=== PATIENT | male | born 1975 | race Two or more races ===

== ENCOUNTER 2018-06-08 13:52 | Emergency (ER) | payer OTHER ==
[~2018-06-08] VITALS: Ht 182.9 cm; Wt 90.7 kg
[2018-06-08] MEDS ORDERED: TRAMADOL HCL 50 MG TABLET ONE (14:57)
[2018-06-08] MEDS ORDERED: ONDANSETRON 4 MG TAB.RAPDIS ONE (14:57)
[2018-06-08] MEDS: ONDANSETRON 4 MG TAB.RAPDIS SL ONE (15:01)
[2018-06-08] MEDS: TRAMADOL HCL 50 MG TABLET PO ONE (15:02)
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
[2018-06-08] MEDS: KETOROLAC TROMETHAMINE INJ 60 MG/2 ML VIAL IM ONE (16:23)
[2018-06-08 16:24] VITALS: BP 129/80
== END 2018-06-08 16:26 | disposition home or self-care (01) ==
LOC: ER 13:55
DX: S16.1XXA Strain of muscle, fascia and tendon at neck level, initial encounter (principal); S39.012A Strain of muscle, fascia and tendon of lower back, initial encounter; R11.2 Nausea with vomiting, unspecified; R42 Dizziness and giddiness; V49.49XA Driver injured in collision with other motor vehicles in traffic accident, initial encounter; Y93.89 Activity, other specified; Y92.410 Unspecified street and highway as the place of occurrence of the external cause; Y99.8 Other external cause status
CPT/HCPCS: 70450; 72110; 99284; A4606 ×2; Q0162; Z7610 ×2

== ENCOUNTER 2018-12-27 05:04 | Inpatient (IN) | payer OTHER ==
[~2018-12-27] VITALS: Ht 180.3 cm; Wt 93.4 kg
--- NOTE | 2018-12-27 05:10 | NUR ---
TO BED 10 BIB EMS C/O POSSIBLE SYNCOPE, PT WAS FOUND ON THE BATHRROM FLOOR. NOTED BLACK TARRY STOOL OB THE SHEET. PT AAOX4 NO ACUTE DISTRESS NOTED, RESP EVEN AND UNLABORED. PT PALE, COOL AND DIAPHORETIC. PLACE PT ON CARDIAC MONITORING, CONTINUOUS POX, O2@2L/NC. ER MD AT BEDSIDE TO EVAL PT WITH ORDERS RECEIVED. WILL CARRY OUT ORDERS.
--- NOTE | 2018-12-27 05:14 | NUR ---
STARTED SL 18G TO [facility], BLOOD DRAWN AND SENT TO LAB.
--- NOTE | 2018-12-27 05:15 | NUR ---
STARTED SL 16G TO [facility], BLOOD DRAWN AND SENT TO LAB.
[2018-12-27] MEDS ORDERED: PANTOPRAZOLE 40 MG VIAL ONE (05:22)
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
[2018-12-27] MEDS ORDERED: IV NS 0.9% 1,000 ML BAG IV ONE (05:30)
[2018-12-27] MEDS ORDERED: PANTOPRAZOLE 80 MG in IV NS 0.9% 100 ML IV ONE (05:30)
[2018-12-27] MEDS ORDERED: ONDANSETRON HCL/PF 4 MG/2 ML VIAL ONE (05:37)
--- NOTE | 2018-12-27 05:39 | NUR ---
NOW PT REPORT BLACK TARRY STOOL X2 DAYS.
[2018-12-27 05:41] LABS: BASOPHILS # (AUTO) 0.1 /CMM (0.0-0.2); BASOPHILS % (AUTO) 0.8 % (0.0-2.0); EOSINOPHILS % (AUTO) 3.4 % (0.0-6.0); HEMATOCRIT 29 % (39-51); HEMOGLOBIN 9.6 g/dL (13.5-17.5); LYMPHOCYTES # (AUTO) 3.6 /CMM (0.8-4.8); LYMPHOCYTES % (AUTO) 41.8 % (20.0-44.0); MEAN CORPUSCULAR HGB CONC 34 g/dl (31.0-36.0); MEAN CORPUSCULAR VOLUME 89 fL (80-96); MONOCYTES # (AUTO) 0.5 /CMM (0.1-1.30); MONOCYTES % (AUTO) 5.8 % (2.0-12.0); NEUTROPHILS # (AUTO) 4.2 /CMM (1.8-8.9); NEUTROPHILS % (AUTO) 48.2 % (43.0-81.0); PLATELET COUNT (AUTO) 299 /CMM (150-450); RED BLOOD CELL COUNT(AUTO) 3.21 MIL/uL (4.5-6.0); WHITE BLOOD COUNT (AUTO) 8.6 K/uL (4.3-11.0)
[2018-12-27 05:54] LABS: CALCIUM, SERUM 8.5 mg/dL (8.5-10.1); CARBON DIOXIDE 27 mmol/L (21-32); CHLORIDE 105 mmol/L (98-107); CREATININE 1.2 mg/dL (0.6-1.3); GLUCOSE 171 mg/dL (74-106); POTASSIUM 4.2 mmol/L (3.5-5.1); SODIUM SERUM 144 mmol/L (136-145); UREA NITROGEN, BLOOD 45 mg/dL (7-18)
[2018-12-27 06:00] LABS: ALANINE AMINOTRANSFERASE 22 U/L (12-78); ALBUMIN 2.8 g/dL (3.4-5.0); ALKALINE PHOSPHATASE 32 U/L (46-116); ASPARTATE AMINOTRANSFERASE 11 U/L (15-37); BILIRUBIN,DIRECT 0.1 mg/dL (0.0-0.2); BILIRUBIN,TOTAL 0.4 mg/dL (0.2-1.0); LIPASE 150 U/L (73-393); TOTAL PROTEIN, SERUM 5.4 g/dL (6.4-8.2)
[2018-12-27] MEDS ORDERED: ONDANSETRON HCL/PF 4 MG/2 ML VIAL IV ONE (06:00)
--- NOTE | 2018-12-27 06:10 | NUR ---
[facility] CALLED. GREENHOUSE LABORER PAGED
[2018-12-27 06:18] LABS: BAND % (MANUAL) 1 % (0.0-5.0); EOSINOPHILS % (MANUAL) 1 % (0-4); LYMPHOCYTES % (MANUAL) 33 % (16-48); MONOCYTES % (MANUAL) 6 % (0-11.0); NEUTROPHILS % (MANUAL) 59 (42-76)
[2018-12-27] MEDS ORDERED: METOCLOPRAMIDE HCL 10 MG/2 ML VIAL IV ONE (06:30)
[2018-12-27] MEDS ORDERED: METOCLOPRAMIDE HCL 10 MG/2 ML VIAL ONE (06:32)
--- NOTE | 2018-12-27 06:49 | NUR ---
CALLED [employer] CH[facility] C[employer] ATTENDANT DR LOPES. ON THE PHONE WITH DR VERDUZCO
--- NOTE | 2018-12-27 07:03 | NUR ---
CALLED Sifteo HEARING AID MECHANIC WAS PAGED.
--- NOTE | 2018-12-27 07:22 | NUR ---
RECEIVED AUTH FROM [facility]AD[facility]SH[facility] RECRU[facility] TO ADMIT PT TO PANEL AUTH # [id number] CLINICALS FAXED TO [facility] AT [phone]
--- NOTE | 2018-12-27 07:28 | NUR ---
GAVE REPORT TO BHARAT BURLESON FOR MARILYN
--- NOTE | 2018-12-27 07:32 | NUR ---
RECEIVED REPORT FROM SARAH BETH LANDA, PT IS AAOX4, NOT IN RESPIRATORY DISTRESS, V/S STABLE, BLOOD TRANSFUSION STARTED. WILL CONTINUE TO MONITOR.
--- NOTE | 2018-12-27 07:34 | NUR ---
AUTO BODY REPAIR ESTIMATOR AT BEDSIDE FOR XRAY.
[2018-12-27] MEDS ORDERED: TEST200V3 IM (08:02)
--- NOTE | 2018-12-27 08:21 | NUR ---
Paged Khoi Ching for admission
--- NOTE | 2018-12-27 08:33 | NUR ---
PT HAS A BOWEL EPISODE NOTED COFFEE GROUND STOOL. AWARE.
[2018-12-27] MEDS ORDERED: MORPHINE SULFATE INJ 2 MG/ML DISP.SYRIN ONE (09:41)
[2018-12-27] MEDS ORDERED: MORPHINE SULFATE INJ 2 MG/ML DISP.SYRIN IV ONE (10:00)
--- NOTE | 2018-12-27 11:27 | NUR ---
ICU 261
--- NOTE | 2018-12-27 11:38 | NUR ---
CALLED ICU TALKED TO JUAN JOSE ACCORDING TO HIM TO NURSE YET FOR ROOM 261.
--- NOTE | 2018-12-27 13:28 | NUR ---
REPORT GIVEN TO SARAH BETH HEART FOR MARILYN.
--- NOTE | 2018-12-27 14:03 | NUR ---
PT TRANSFER TO [facility] 117-2. REPORT GIVEN AT BEDSIDE.
--- NOTE | 2018-12-27 14:15 | NUR ---
PROFESSOR OF RHETORICMINER PICK NOTES RECEIVED PT FROM ER TO ROOM 117-2 VIA RNEY BY THE CHARGE NURSE.ALERT/ORIENTED X4.ON ROOM AIR,TOLERATING WELL.NO SOB AND ACUTE DISTRESS NOTED.ON TELE HR IS 86 WITH SR.C/O PAIN 9/10 ON ABDOMEN.ON NPO FOR AM EGD.IV LINE IS ON RIGHT AC G22 AND LEFT AC G18,SITE IS CLEAN DRY AND INTACT.NO INFILTRATION NOTED.SAFETY IS MAINTAINED DAVIS LL TIMES.CALL LIGHT IS WITHIN REACH.WILL CONTINUE TO MONITOR THE PT CLOSELY.
[2018-12-27 15:13] LABS: BASOPHILS % (AUTO) 0.4 % (0.0-2.0); EOSINOPHILS % (AUTO) 0.8 % (0.0-6.0); HEMATOCRIT 31 % (39-51); HEMOGLOBIN 10.4 g/dL (13.5-17.5); LYMPHOCYTES % (AUTO) 30.1 % (20.0-44.0); MEAN CORPUSCULAR HGB CONC 34 g/dl (31.0-36.0); MEAN CORPUSCULAR VOLUME 90 fL (80-96); MONOCYTES # (AUTO) 0.7 /CMM (0.1-1.30); MONOCYTES % (AUTO) 7.2 % (2.0-12.0); NEUTROPHILS # (AUTO) 6.1 /CMM (1.8-8.9); NEUTROPHILS % (AUTO) 61.5 % (43.0-81.0); PLATELET COUNT (AUTO) 267 /CMM (150-450); RED BLOOD CELL COUNT(AUTO) 3.41 MIL/uL (4.5-6.0); WHITE BLOOD COUNT (AUTO) 9.8 K/uL (4.3-11.0)
[2018-12-27 16:00] VITALS: BP 103/64
[2018-12-27 16:12] LABS: IRON, SERUM 87 ug/dl (50-175); TOTAL IRON BINDING CAPACITY 293 ug/dl (250-450)
[2018-12-27 16:24] LABS: FERRITIN 90 ng/mL (8-388)
[2018-12-27] MEDS: ACETAMINOPHEN 325 MG TABLET PO PRN (16:29)
[2018-12-27] MEDS: IV D5/0.45 NACL 1,000 ML IV PRN (16:29)
[2018-12-27] MEDS ORDERED: ONDANSETRON HCL/PF 4 MG/2 ML VIAL IVP PRN (16:30)
[2018-12-27] MEDS ORDERED: Z GUARD REMEDY 2 OZ OINT TP PRN (16:30)
[2018-12-27] MEDS ORDERED: PANTOPRAZOLE 40 MG VIAL IV SCH (17:00)
--- NOTE | 2018-12-27 17:25 | NUR ---
GROUP WORKER NOTES ,GI SURGEON SEEN THE PT AND ORDERED TO D/D NPO NOW AND START SOFT DIET AND NPO FROM MIDNIGHT AND START IV MORPHINE 2GM Q4HRS PRN.NEW ORDERS NOTED AND CARRIED OUT.
[2018-12-27] MEDS ORDERED: MORPHINE SULFATE INJ 2 MG/ML DISP.SYRIN IV PRN (17:30)
[2018-12-27] MEDS: PANTOPRAZOLE 40 MG VIAL IV SCH (17:40)
[2018-12-27] MEDS: SUCRALFATE 1 G/10 ML UDC PO SCH (17:40)
--- NOTE | 2018-12-27 18:45 | NUR ---
PIG FURNACE OPERATOR CLOSING NOTES PT IS LYING ON BED.HAD FOOD.ON ROOM AIR,TOLERATING WELL.NO SOB AND ACUTE DISTRESS NOTED.ON SOFT DIET AND NPO MIDNIGHT.IV MORPHINE 2GM IS GIVEN,.EFFECTIVE.NO SIGNIFICANT CHANGES NOTES IN THE SHIFT.ENDORSED TO WAREHOUSE ORDER SELECTOR RN FOR MARILYN AND AM EGD.
[2018-12-27 19:10] LABS: HEMATOCRIT 28 % (39-51); HEMOGLOBIN 9.5 g/dL (13.5-17.5); MEAN CORPUSCULAR HGB CONC 34 g/dl (31.0-36.0); MEAN CORPUSCULAR VOLUME 90 fL (80-96); PLATELET COUNT (AUTO) 235 /CMM (150-450); RED BLOOD CELL COUNT(AUTO) 3.08 MIL/uL (4.5-6.0); WHITE BLOOD COUNT (AUTO) 9.2 K/uL (4.3-11.0)
[2018-12-27 20:00] VITALS: BP 118/67
--- NOTE | 2018-12-27 20:00 | NUR ---
FOREST PATHOLOGY ASSOCIATE PROFESSOR NOTES RECEIVED PTS IN BED AWAKE ALERT AND VERBALLY RESPONSIVE , ON TELE SR ON THE MONITOR .ON R/A SATING 100% NO SOB ,NO DISTRESS NOTED ALL NEEDS ATTENDED TOO CALL LIGHT WITHIN REACH DUE MEDS GIVEN ORDERED ,PTS C/O OF ABD PAIN .DUE MEDS GIVEN.
--- NOTE | 2018-12-27 20:25 | NUR ---
GEOSCIENCE LABORATORY TECHNICIAN NOTES SPOKE TO DR SANTOS RE MORPHINE NOT WORKING WITH ORDER , MORPHINE 2MG Q3HRS PRN FOR PAIN, ORDER NOTED AND CARRIED OUT.
[2018-12-27] MEDS: MORPHINE SULFATE INJ 2 MG/ML DISP.SYRIN IV PRN ×2 (20:27→23:53)
[2018-12-27] MEDS: ZOLPIDEM TARTRATE 5 MG TABLET PO PRN (21:48)
--- NOTE | 2018-12-27 23:56 | NUR ---
DEPARTMENT CHAIRPERSON NOTES MORPINE 2MG GIVEN FOR ABDOMINAL PAIN WITH RELIEF ,V/S STABLE AFEBRILE.
[2018-12-28] VITALS: BP 119/59
--- NOTE | 2018-12-28 | NUR ---
television parts tester notes. pts npo post mn instructed
[2018-12-28] MEDS: MORPHINE SULFATE INJ 2 MG/ML DISP.SYRIN IV PRN ×6 (03:48→20:59)
[2018-12-28 04:00] VITALS: BP 124/67
[2018-12-28] MEDS: IV D5/0.45 NACL 1,000 ML IV PRN (06:29)
--- NOTE | 2018-12-28 06:33 | NUR ---
telephoto engineer notes pts in bed remains npo status.
[2018-12-28 06:57] LABS: BASOPHILS # (AUTO) 0.1 /CMM (0.0-0.2); EOSINOPHILS % (AUTO) 4.8 % (0.0-6.0); HEMATOCRIT 25 % (39-51); HEMOGLOBIN 8.6 g/dL (13.5-17.5); LYMPHOCYTES # (AUTO) 2.7 /CMM (0.8-4.8); LYMPHOCYTES % (AUTO) 36.8 % (20.0-44.0); MEAN CORPUSCULAR HGB CONC 34 g/dl (31.0-36.0); MEAN CORPUSCULAR VOLUME 89 fL (80-96); MONOCYTES # (AUTO) 0.6 /CMM (0.1-1.30); MONOCYTES % (AUTO) 7.4 % (2.0-12.0); NEUTROPHILS # (AUTO) 3.7 /CMM (1.8-8.9); PLATELET COUNT (AUTO) 212 /CMM (150-450); RED BLOOD CELL COUNT(AUTO) 2.85 MIL/uL (4.5-6.0); WHITE BLOOD COUNT (AUTO) 7.4 K/uL (4.3-11.0)
[2018-12-28 07:00] LABS: ALBUMIN 2.7 g/dL (3.4-5.0); BILIRUBIN,TOTAL 0.3 mg/dL (0.2-1.0); CALCIUM, SERUM 7.8 mg/dL (8.5-10.1); CREATININE 0.9 mg/dL (0.6-1.3); PHOSPHORUS 3.8 mg/dL (2.5-4.9); POTASSIUM 3.7 mmol/L (3.5-5.1); TOTAL PROTEIN, SERUM 4.8 g/dL (6.4-8.2)
--- NOTE | 2018-12-28 07:10 | NUR ---
SENIOR FINANCIAL ANALYST OPENING NOTES RECEIVED PT LYING ON BED.ALERT/ORIENTED X4.ON ROOM AIR,TOLERATING WELL.NO SOB AND ACUTE DISTRESS NOTED.ON TELE HR IS 70'S WITH SR.NO PAIN NOTED FOR NOW.ON NPO FOR EGD TODAY.IV LINE IS ON RIGHT AC G22 AND LEFT AC G18,SITE IS CLEAN DRY AND INTACT.NO INFILTRATION NOTED.SAFETY IS MAINTAINED DAVIS LL TIMES.CALL LIGHT IS WITHIN REACH.WILL CONTINUE TO MONITOR THE PT CLOSELY.
[2018-12-28 08:00] VITALS: BP 106/67
[2018-12-28] MEDS: SUCRALFATE 1 G/10 ML UDC PO SCH ×3 (08:23→16:49)
[2018-12-28] MEDS: PANTOPRAZOLE 40 MG VIAL IV SCH ×2 (08:38→16:49)
[2018-12-28 10:02] LABS: BAND % (MANUAL) 1 % (0.0-5.0); EOSINOPHILS % (MANUAL) 5 % (0-4); LYMPHOCYTES % (MANUAL) 29 % (16-48); MONOCYTES % (MANUAL) 9 % (0-11.0); MYELOCYTES % 2 % (0-0); NEUTROPHILS % (MANUAL) 54 (42-76)
--- NOTE | 2018-12-28 11:30 | NUR ---
HEATING ELEMENT BUILDER NOTES [facility]ED [facility],SPOKE TO JOSIANE,SAID THE PT IS NOT IN THE LIST TODAY FOR EGD.CALLED X3,LEFT THE MESSAGE.DIDN'T CALL BACK. PER CHARGE NURSE ORDERED TO D/C NPO NOW AND START REGULAR DIET NOW AND START NPO MIDNIGHT BECAUSE PT IS FEELING HUNGRY AND CANNOT TOLERATE MORE.
[2018-12-28 12:00] VITALS: BP 106/61
[2018-12-28 16:00] VITALS: BP 121/65
[2018-12-28] MEDS: ACETAMINOPHEN 325 MG TABLET PO PRN (16:49)
[2018-12-28 18:03] LABS: OCCULT BLOOD STOOL POSITIVE (NEGATIVE)
--- NOTE | 2018-12-28 19:00 | NUR ---
RIGGER CLOSING NOTES PT IS LYING ON BED.IV PAIN MEDS ARE GIVEN.NPO FROM MIDNIGHT ONWARDS.NO SIGNIFICANT CHANGES NOTED IN THE SHIFT.ENDORSED TO IMPLEMENTATION PROJECT COORDINATOR RN FOR MARILYN AND FOLLOW UP WITH AM PROCEDURE.
[2018-12-28 20:00] VITALS: BP_SYST 104; BP_SYST 113; BP_DIAS 59; BP_DIAS 61
[2018-12-28] MEDS: ZOLPIDEM TARTRATE 5 MG TABLET PO PRN (20:58)
[2018-12-29] VITALS (13 sets, daily range): BP systolic 96–131; BP diastolic 44–78
[2018-12-29] MEDS: IV D5/0.45 NACL 1,000 ML IV PRN ×2 (00:13→19:44)
[2018-12-29] MEDS ORDERED: ANESTHESIA TRAY IN PYXIS 1 EA TRAY MC ONE (07:05)
--- NOTE | 2018-12-29 07:05 | NUR ---
ROOM SERVICE SERVER OPENING NOTES RECEIVED PT LYING ON BED. ALERT/ORIENTED X4. ON ROOM AIR, TOLERATING WELL. NO SOB AND ACUTE DISTRESS NOTED. ON TELE HR IS 80'S WITH SR. NO PAIN NOTED FOR NOW. ON NPO FOR EGD TODAY. IV LINE IS ON RIGHT AC G22 AND LEFT AC G18, SITE IS CLEAN DRY AND INTACT. NO INFILTRATION NOTED. SAFETY IS MAINTAINED DAVIS LL TIMES. CALL LIGHT IS WITHIN REACH. WILL CONTINUE TO MONITOR THE PT CLOSELY.
[2018-12-29 07:09] LABS: BASOPHILS # (AUTO) 0.1 /CMM (0.0-0.2); BASOPHILS % (AUTO) 1.1 % (0.0-2.0); EOSINOPHILS % (AUTO) 5.4 % (0.0-6.0); HEMATOCRIT 23 % (39-51); HEMOGLOBIN 7.8 g/dL (13.5-17.5); LYMPHOCYTES # (AUTO) 1.8 /CMM (0.8-4.8); LYMPHOCYTES % (AUTO) 29.3 % (20.0-44.0); MEAN CORPUSCULAR HGB CONC 35 g/dl (31.0-36.0); MEAN CORPUSCULAR VOLUME 91 fL (80-96); MONOCYTES # (AUTO) 0.4 /CMM (0.1-1.30); MONOCYTES % (AUTO) 6.9 % (2.0-12.0); NEUTROPHILS # (AUTO) 3.5 /CMM (1.8-8.9); NEUTROPHILS % (AUTO) 57.3 % (43.0-81.0); PLATELET COUNT (AUTO) 191 /CMM (150-450); WHITE BLOOD COUNT (AUTO) 6.1 K/uL (4.3-11.0)
[2018-12-29 07:19] LABS: CALCIUM, SERUM 7.8 mg/dL (8.5-10.1); CREATININE 0.9 mg/dL (0.6-1.3); PHOSPHORUS 3.2 mg/dL (2.5-4.9); POTASSIUM 3.6 mmol/L (3.5-5.1)
[2018-12-29] MEDS: SUCRALFATE 1 G/10 ML UDC PO SCH ×3 (07:30→17:37)
[2018-12-29 07:34] LABS: EOSINOPHILS % (MANUAL) 7 % (0-4); LYMPHOCYTES % (MANUAL) 27 % (16-48); MONOCYTES % (MANUAL) 7 % (0-11.0); MYELOCYTES % 2 % (0-0); NEUTROPHILS % (MANUAL) 57 (42-76)
[2018-12-29] MEDS: PANTOPRAZOLE 40 MG VIAL IV SCH ×2 (09:00→17:37)
[2018-12-29] MEDS: MORPHINE SULFATE INJ 2 MG/ML DISP.SYRIN IV PRN ×4 (12:27→23:38)
[2018-12-29] MEDS: ACETAMINOPHEN 325 MG TABLET PO PRN (18:50)
--- NOTE | 2018-12-29 19:04 | NUR ---
RUSSIAN LANGUAGE PROFESSOR CLOSING NOTES PT RESTING IN BED. ALERT/ORIENTED X4. ON ROOM AIR, TOLERATING WELL. NO SOB AND ACUTE DISTRESS NOTED. ON TELE HR IS 80'S WITH SR. IV LINE IS ON RIGHT AC G22 AND LEFT AC G18, SITE IS CLEAN DRY AND INTACT. NO INFILTRATION NOTED. SAFETY WAS MAINTAINED AT ALL TIMES. CALL LIGHT IS WITHIN REACH. ENDORSED TO GREASE REFINING SUPERVISOR NURSE FOR MARILYN.
--- NOTE | 2018-12-29 19:50 | NUR ---
pt complained of abdominal pain , stated morphine does not help anymore, asking for other pain medication. spoke to md díaz, with new order of [place] 5/325 q 4hrs prn. pt made aware.
[2018-12-29] MEDS: ZOLPIDEM TARTRATE 5 MG TABLET PO PRN (20:00)
[2018-12-29] MEDS: HYDROCODONE/APAP 5/325MG 1 EACH TABLET PO PRN (20:00)
[2018-12-30] VITALS: BP 109/63
[2018-12-30] MEDS: HYDROCODONE/APAP 5/325MG 1 EACH TABLET PO PRN ×2 (00:01→12:17)
[2018-12-30 04:00] VITALS: BP 98/59
[2018-12-30 07:30] LABS: BASOPHILS # (AUTO) 0.1 /CMM (0.0-0.2); BASOPHILS % (AUTO) 1.1 % (0.0-2.0); EOSINOPHILS % (AUTO) 5.4 % (0.0-6.0); HEMATOCRIT 25 % (39-51); HEMOGLOBIN 8.6 g/dL (13.5-17.5); LYMPHOCYTES # (AUTO) 2.3 /CMM (0.8-4.8); LYMPHOCYTES % (AUTO) 37.6 % (20.0-44.0); MEAN CORPUSCULAR HGB CONC 34 g/dl (31.0-36.0); MEAN CORPUSCULAR VOLUME 91 fL (80-96); MONOCYTES # (AUTO) 0.5 /CMM (0.1-1.30); MONOCYTES % (AUTO) 7.7 % (2.0-12.0); NEUTROPHILS # (AUTO) 2.9 /CMM (1.8-8.9); NEUTROPHILS % (AUTO) 48.2 % (43.0-81.0); PLATELET COUNT (AUTO) 183 /CMM (150-450)
[2018-12-30 07:46] LABS: CALCIUM, SERUM 7.8 mg/dL (8.5-10.1); CREATININE 0.9 mg/dL (0.6-1.3); PHOSPHORUS 4.2 mg/dL (2.5-4.9); POTASSIUM 3.5 mmol/L (3.5-5.1)
--- NOTE | 2018-12-30 07:55 | NUR ---
RN NOTES RECEIVED PATIENT AWAKE, ALERT AND ORIENTED X4 WATCHING T.V. HE IS ABLE TO VERBALIZE NEEDS. BREATHING EVEN AND UNLABORED WITH NO DISTRESS NOTED. ON SFDC TECHNICAL ARCHITECT HR OF 60. DENIES ANY PAIN AT THIS TIME. IV SITE INTACT AN PATENT WITH ONGOING FLUID ORDERED. ALL SAFETY MEASURES DONE. BED LOW AND LOCKED POSITION. PLACED CALL LIGHT WITHIN REACH. WILL CONTINUE TO MONITOR.
[2018-12-30] MEDS: SUCRALFATE 1 G/10 ML UDC PO SCH ×2 (07:59→12:05)
[2018-12-30 08:00] VITALS: BP 122/71
[2018-12-30] MEDS: PANTOPRAZOLE 40 MG VIAL IV SCH (09:28)
[2018-12-30] MEDS: IV D5/0.45 NACL 1,000 ML IV PRN (09:29)
[2018-12-30] MEDS: MORPHINE SULFATE INJ 2 MG/ML DISP.SYRIN IV PRN (09:38)
[2018-12-30 10:07] LABS: EOSINOPHILS % (MANUAL) 6 % (0-4); LYMPHOCYTES % (MANUAL) 22 % (16-48); MONOCYTES % (MANUAL) 7 % (0-11.0); NEUTROPHILS % (MANUAL) 65 (42-76)
[2018-12-30 12:00] VITALS: BP 107/55
[2018-12-30 12:22] VITALS: BP 107/55
[2018-12-30 12:27] VITALS: BP 107/55
--- NOTE | 2018-12-30 12:30 | NUR ---
PATIENT IS STABLE CONDITION NO DISTRESS NOTED. ALL BELONGING SIGNED AND DISCHARGE WITH PATIENT. ALL DISCHARGE INSTRUCTIONS EXPLAINED TO PATIENT AND SIGNED FOR. ALL IV REMOVED ,CATH INTACT NO BLEEDING NOTED.
== END 2018-12-30 12:30 | disposition home or self-care (01) | DRG 241 ==
LOC: ER 05:06 → ICU 11:30 → TELE1 13:57 → MEDSG1 12-30 11:47
PROVIDERS: ADMIT Family Medicine; ATTEND Family Medicine
DX: K29.81 Duodenitis with bleeding (principal); E87.2 Acidosis; E44.1 Mild protein-calorie malnutrition; D62 Acute posthemorrhagic anemia; E86.0 Dehydration; K26.4 Chronic or unspecified duodenal ulcer with hemorrhage; R55 Syncope and collapse; T39.395A Adverse effect of other nonsteroidal anti-inflammatory drugs [NSAID], initial encounter; K44.9 Diaphragmatic hernia without obstruction or gangrene; Z86.19 Personal history of other infectious and parasitic diseases
CPT/HCPCS: 36415; 71045-TC; 80048-TC; 80053-TC; 80061-TC; 80076-TC; 82272-TC; 82728-TC; 83540-TC; 83605-TC; 83690-TC; 83735-TC; 84100-TC; 84484-TC; 85025-TC; 85027-TC; 85730-TC; 86677; 86850-TC; 86921-TC; 87040-TC; 87045-TC; 87081-TC; 87177; 87209; 88305-TC; 88313-TC; 88342; 89055; C9113; G0378; J2270; J2405; J2704; J2765; J3490; J7030; P9016-BL

== ENCOUNTER 2019-08-04 02:54 | Inpatient (IN) | payer OTHER ==
[~2019-08-04] VITALS: Ht 182.9 cm; Wt 99.5 kg
[~2019-08-04 02:54] MED LIST: TEST200V3 IM
[2019-08-04] MEDS ORDERED: OCTREOTIDE 50 MCG/ML AMPUL IV ONE (03:00)
[2019-08-04] MEDS ORDERED: PANTOPRAZOLE 80 MG in IV NS 0.9% 100 ML IV ONE (03:00)
[2019-08-04] MEDS ORDERED: IV NS 0.9% 1,000 ML BAG IV ONE (03:00)
[2019-08-04] MEDS ORDERED: OCTREOTIDE 1,250 MCG in IV NS 0.9% 250 ML IV ONE (03:00)
[2019-08-04] MEDS ORDERED: PANTOPRAZOLE 80 MG in IV NS 0.9% 500 ML IV ONE (03:00)
[2019-08-04] MEDS ORDERED: ONDANSETRON HCL/PF 4 MG/2 ML VIAL IVP ONE (03:00)
--- NOTE | 2019-08-04 03:00 | NUR ---
JAVIER FROM HOME. TO ER BED 9. AAOX 4. NO RESP DISTRESS, BREATHING EVEN AND UNLABORED. C/O BLOD TINGED VOMMIT. PT REPORTS VOMMIT DARK RED. PT VOMMITIED DURINF ASSESSMENT, VOMMIT IS BROWN AND THIS. PT ALSO REPORTS NAUSEA AND ABDOMINAL PAIN. 06/06. DENIES CP. AT BEDSIDE FOR EVAL. ORDERS RECEIVED NOTED AND CARRIED OUT. IV LINE STARTED ON R AC 19G. BLOOD DRAWN AND GIVEN TO AUTOMATION AND CONTROLS INSTRUCTOR AT BEDSIDE.
[2019-08-04] MEDS ORDERED: PANTOPRAZOLE 40 MG VIAL ONE ×2 (03:08→03:45)
[2019-08-04] MEDS ORDERED: OCTREOTIDE 100 MCG/ML VIAL ONE ×2 (03:08→03:47)
[2019-08-04 03:13] LABS: BASOPHILS # (AUTO) 0.1 /CMM (0.0-0.2); HEMATOCRIT 54 % (39-51); MEAN CORPUSCULAR VOLUME 76 fL (80-96); MONOCYTES % (AUTO) 5.8 % (2.0-12.0); RED BLOOD CELL COUNT(AUTO) 7.11 MIL/uL (4.5-6.0)
[2019-08-04] MEDS ORDERED: MORPHINE SULFATE INJ 4 MG/ML DISP.SYRIN ONE (03:13)
[2019-08-04 03:23] LABS: BASOPHILS % (AUTO) 0.7 % (0.0-2.0); EOSINOPHILS % (AUTO) 1.8 % (0.0-6.0); HEMOGLOBIN 18.1 g/dL (13.5-17.5); LYMPHOCYTES # (AUTO) 2.7 /CMM (0.8-4.8); LYMPHOCYTES % (AUTO) 24.4 % (20.0-44.0); MEAN CORPUSCULAR HGB CONC 33 g/dl (31.0-36.0); MONOCYTES # (AUTO) 0.6 /CMM (0.1-1.30); NEUTROPHILS # (AUTO) 7.3 /CMM (1.8-8.9); NEUTROPHILS % (AUTO) 67.3 % (43.0-81.0); PLATELET COUNT (AUTO) 381 /CMM (150-450); WHITE BLOOD COUNT (AUTO) 10.9 K/uL (4.3-11.0)
[2019-08-04 03:24] LABS: CALCIUM, SERUM 9.5 mg/dL (8.5-10.1); CARBON DIOXIDE 29 mmol/L (21-32); CHLORIDE 99 mmol/L (98-107); CREATININE 1.3 mg/dL (0.6-1.3); GLUCOSE 126 mg/dL (74-106); POTASSIUM 3.6 mmol/L (3.5-5.1); SODIUM SERUM 141 mmol/L (136-145); UREA NITROGEN, BLOOD 23 mg/dL (7-18)
[2019-08-04 03:30] LABS: ALANINE AMINOTRANSFERASE 30 U/L (12-78); ALBUMIN 4.3 g/dL (3.4-5.0); ALKALINE PHOSPHATASE 76 U/L (46-116); ASPARTATE AMINOTRANSFERASE 18 U/L (15-37); BILIRUBIN,DIRECT 0.2 mg/dL (0.0-0.2); BILIRUBIN,TOTAL 0.7 mg/dL (0.2-1.0); LIPASE 132 U/L (73-393); TOTAL PROTEIN, SERUM 8.3 g/dL (6.4-8.2)
[2019-08-04] MEDS ORDERED: MORPHINE SULFATE INJ 10 MG/ML DISP.SYRIN IV ONE (03:30)
[2019-08-04] MEDS ORDERED: OCTREOTIDE 500 MCG/ML VIAL ONE (03:45)
[2019-08-04] MEDS ORDERED: ONDANSETRON HCL/PF 4 MG/2 ML VIAL IVP PRN (04:00)
[2019-08-04] MEDS ORDERED: Z GUARD REMEDY 2 OZ OINT TP PRN (04:00)
[2019-08-04] MEDS ORDERED: MAGNESIUM HYDROXIDE 30 ML UDC PO PRN (04:00)
[2019-08-04] MEDS ORDERED: MAG HYDROX/AL HYDROX/SIMETH 30 ML UDC PO PRN (04:00)
--- NOTE | 2019-08-04 04:21 | NUR ---
REPORT GIVEN TO SARAH BETH NOVAK FOR MARILYN.
[2019-08-04 04:29] LABS: EOSINOPHILS % (MANUAL) 1 % (0-4); LYMPHOCYTES % (MANUAL) 19 % (16-48); MONOCYTES % (MANUAL) 5 % (0-11.0); NEUTROPHILS % (MANUAL) 75 (42-76)
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
--- NOTE | 2019-08-04 04:38 | NUR ---
PT TRASNSPORTED TO UNIT ON GURNEY WITH EMT AND RN AT BEDSIDE. NAD NOTED DURINF TRANSPORT. PT IS STABLE FOR TRANSPORT. PT AMBULATED FROM GURNEY TO BED ON STEADY GAIT WITHOUT ASSIST
[2019-08-04] MEDS: IV NS 0.9% 1,000 ML IV PRN ×2 (05:05→16:46)
[2019-08-04 05:11] VITALS: BP 123/92
--- NOTE | 2019-08-04 06:55 | NUR ---
RN NOTES ALL NEEDS ATTENDED, PATIENT STILL COMPLAINTS OF ABDOMINAL PAIN, SATING 97% ON ROOM AIR, PROTONIX IV AND SANDOSTATIN STILL INFUSING, INITIATED ANOTHER IV ACCESS ON HIS LEFT HAND G#20 FOR IV HYDRATION NS 1 L AT 75ML/HR. IV ACCESS INTACT AND PATENT. SAFETY MEASURES IN PLACE, NPO EMPHASIZED, CALL LIGHT WITHIN EASY REACH. WILL ENDORSE TO AM NURSE FOR CONTINUITY OF CARE.
--- NOTE | 2019-08-04 07:30 | NUR ---
MS/RN - Assessment Patient is awake, A/O x 4, abdominal pain manageable with Morphine sulfate 4 mg IVP, not apparent distress, stable on room air, denies n/v, currently on Protonix and Sandostatin drip, NPO for now. IVF NS at 75 ml/hr infusing well on the left hand with no complications. Pending GI consult with Dr. Jara. Labs reviewed no critical values noted. All needs attended. Will continue with current medical management.
[2019-08-04 08:00] VITALS: BP 156/86
[2019-08-04] MEDS: MORPHINE SULFATE INJ 2 MG/ML DISP.SYRIN IV PRN ×4 (08:02→20:01)
[2019-08-04 13:18] LABS: HEMOGLOBIN 16.2 g/dL (13.5-17.5)
--- NOTE | 2019-08-04 13:30 | NUR ---
MS/RN - GI consult Seen and examined by NICHOLAS Jain with orders. Keep patient NPO for now.
--- NOTE | 2019-08-04 15:51 | NUR ---
MS/RN - Notes Per NICHOLAS Jain okay to start patient on clear liquid diet.
[2019-08-04 16:00] VITALS: BP 133/83
[2019-08-04] MEDS: SUCRALFATE 1 G TABLET PO SCH ×2 (16:47→21:13)
--- NOTE | 2019-08-04 17:55 | NUR ---
MS/RN - End of shift summary Patient able to tolerate clear liquid diet, denies n/v, abdominal pain controlled with Morphine Sulfate 4 mg IVP every 4 hours PRN, no apparent distress. Patient updated on plan of care. Will continue with current medical management.
--- NOTE | 2019-08-04 19:35 | NUR ---
RN MS OPENING NOTES PT RECEIVED IN BED, AWAKE ALERT ORIENTED X4, BREATHING EVEN AND UNLABORED ON ROOM AIR. IN NO APPARENT PAIN OR DISCOMFORT AT THE TIME, STOOL SAMPLE COLLECTED AND SENT TO LAB FOR OB. IV ACCESS ON THE R HAND 18 AND L HAND 20 WITH NS @75ML/HR. BED IN LOWEST LOCKED POSITION, CALL LIGHT WITHIN REACH AT ALL TIMES. WILL CONTINUE TO MONITOR FREQUENTLY.
[2019-08-04 20:43] VITALS: BP 140/90
[2019-08-04] MEDS: PANTOPRAZOLE 40 MG VIAL IV SCH (21:13)
[2019-08-04] MEDS ORDERED: ZOLPIDEM TARTRATE 10 MG TABLET PO ONE (22:00)
[2019-08-04 23:28] LABS: OCCULT BLOOD STOOL POSITIVE (NEGATIVE)
[2019-08-05] MEDS: MORPHINE SULFATE INJ 2 MG/ML DISP.SYRIN IV PRN ×6 (01:12→18:56)
--- NOTE | 2019-08-05 06:44 | NUR ---
RN MS CLOSING NOTES PT REMAINS IN BED, AWAKE ALERT ORIENTED X4, BREATHING EVEN AND UNLABORED ON ROOM AIR. IN NO APPARENT PAIN OR DISCOMFORT AT THE TIME, UNABLE TO SLEEP MOST OF SHIFT. IV ACCESS ON THE R HAND 18 AND L HAND 20 WITH NS @75ML/HR. BED IN LOWEST LOCKED POSITION, CALL LIGHT WITHIN REACH AT ALL TIMES. WILL ENDORSE TO DAY NURSE FOR MARILYN.
[2019-08-05] MEDS: SUCRALFATE 1 G TABLET PO SCH ×3 (07:54→16:41)
[2019-08-05] MEDS: PANTOPRAZOLE 40 MG VIAL IV SCH (07:54)
[2019-08-05 08:25] LABS: BASOPHILS # (AUTO) 0.1 /CMM (0.0-0.2); BASOPHILS % (AUTO) 1.1 % (0.0-2.0); EOSINOPHILS % (AUTO) 5.9 % (0.0-6.0); HEMATOCRIT 44 % (39-51); HEMOGLOBIN 14.2 g/dL (13.5-17.5); LYMPHOCYTES # (AUTO) 3.5 /CMM (0.8-4.8); LYMPHOCYTES % (AUTO) 41.5 % (20.0-44.0); MEAN CORPUSCULAR HGB CONC 32 g/dl (31.0-36.0); MEAN CORPUSCULAR VOLUME 79 fL (80-96); MONOCYTES # (AUTO) 0.8 /CMM (0.1-1.30); MONOCYTES % (AUTO) 9.9 % (2.0-12.0); NEUTROPHILS # (AUTO) 3.6 /CMM (1.8-8.9); NEUTROPHILS % (AUTO) 41.6 % (43.0-81.0); PLATELET COUNT (AUTO) 274 /CMM (150-450); RED BLOOD CELL COUNT(AUTO) 5.62 MIL/uL (4.5-6.0); WHITE BLOOD COUNT (AUTO) 8.5 K/uL (4.3-11.0)
[2019-08-05 08:28] LABS: THYROID STIMULATING HORMONE 2.127 uIU/mL (0.358-3.74)
[2019-08-05 08:32] LABS: CALCIUM, SERUM 8.3 mg/dL (8.5-10.1); MAGNESIUM 2.1 mg/dL (1.8-2.4); PHOSPHORUS 3.3 mg/dL (2.5-4.9)
[2019-08-05 08:40] LABS: POTASSIUM 3.6 mmol/L (3.5-5.1)
--- NOTE | 2019-08-05 09:32 | NUR ---
RN MS OPENING NOTES Patient received on room air, no sob noted, a/o x4. R HAND 18 and L hand with NS 75 mL per hour. Patient lying down comfortably on the bed, bed at the lowest setting, call light within reach, side rail up x2.
[2019-08-05] MEDS ORDERED: PANT40VI PO (09:47)
[2019-08-05] MEDS ORDERED: SUCR1TAB PO (09:47)
[2019-08-05] MEDS ORDERED: CLAR500T PO (10:00)
[2019-08-05] MEDS ORDERED: AMOX500T2 PO (10:00)
[2019-08-05 16:00] VITALS: BP 136/74
--- NOTE | 2019-08-05 18:00 | NUR ---
RN CLOSING NOTES Patient remains on room air, no sob noted, remains a/o x4. Patient discharged but he is currently awaiting before leaving due to oriental orthodox belief. L hand #[address] Will remove all lines later on. Bed at the lowest setting, call light within reach, side rails up x2, patient able to walk with good balance and gait.
--- NOTE | 2019-08-05 19:05 | NUR ---
MS RN NOTE RECEIVED PT IN STABLE CONDITION A/O X4, CURRENTLY WALKING AROUND FLOOR. NO SIGNS OF SOB OR DISTRESS NO C/O PAIN OR N/V. HAS IV IN R HAND #18 S/L. ALL CURRENT NEEDS ATTENDED TO. BED LOW, LOCKED, INSTRUCTED THE PATIENT TO RETURN TO BED WHEN READY. WILL CONT. TO MONITOR. PT. DUE FOR D/C AT 1907 AFTER JAIN HOLID[facility].
--- NOTE | 2019-08-05 19:46 | NUR ---
MS RN NOTE PT READY TO BE DISCHARGED FROM [facility]. ALL FORMS SIGNED, DISCHARGE TEACHING GIVEN TO PATIENT WITH VERBALIZATION OF UNDERSTANDING. ALL BELONGINGS ACCOUNTED AND SIGNED FOR. SKINS REMAINS INTACT. IV SITE REMOVED AND DRESSED ACCORDINGLY. NO BLEEDING NOTED. ID BANDS ALSO REMOVED. VSS. PT STATES HE WILL BE LEAVING VIA UBER. POULTRY FARM LABORER WILL ACCOMPANY PT TO PERSONAL VEHICLE NOW. PT LEFT FLOOR IN STABLE CONDITION, NO SIGNS OF SOB OR DISTRESS, NO C/O PAIN. NOTED WITH STEADY GAIT UPON DISCHARGE.
[2019-08-06 13:07] LABS: H. PYLORI AB IgA <9.0 units (0.0-8.9)
== END 2019-08-05 19:46 | disposition home or self-care (01) | DRG 241 ==
LOC: ER 02:55 → TELE 04:12 → MED 04:35
PROVIDERS: ADMIT Family Medicine; ATTEND Family Medicine
DX: K26.4 Chronic or unspecified duodenal ulcer with hemorrhage (principal); D75.1 Secondary polycythemia; K21.9 Gastro-esophageal reflux disease without esophagitis; Z87.11 Personal history of peptic ulcer disease; E66.9 Obesity, unspecified; R73.9 Hyperglycemia, unspecified; Z83.3 Family history of diabetes mellitus; Z68.29 Body mass index [BMI] 29.0-29.9, adult; K29.80 Duodenitis without bleeding
CPT/HCPCS: 36415; 71045-TC; 80048-TC; 80061-TC; 80076-TC; 82272-TC; 83690-TC; 83735-TC; 84100-TC; 84443-TC; 84484-TC; 85025-TC; 85027-TC; 85730-TC; 86677; 86850-TC; 87081-TC; C9113; G0378; J2270; J2354; J7030; J7040; J7050

== ENCOUNTER 2020-07-08 16:58 | Inpatient (IN) | payer OTHER ==
[~2020-07-08] VITALS: Ht 182.9 cm; Wt 95.3 kg
[~2020-07-08 16:58] MED LIST changes: +AMOX500T2 PO; +CLAR-45 PO; +PANT40VI PO; +SUCR1TAB PO; -TEST200V3 IM
--- NOTE | 2020-07-08 17:04 | NUR ---
Called NO response
--- NOTE | 2020-07-08 17:10 | NUR ---
PATIENT STATES "Abdominal Pain started last night. Black stools today. Feel weak/dizzy", TO ER BED 9, HOOKED TO MONITOR AND POX, CHANGED TO HOSP GOWN, WARM BLANKET PROVIDED, PATIENT AAO x 4, BREATHING EVEN AND UNLABORED. AWAITING MD WILLOUGHBY
--- NOTE | 2020-07-08 17:24 | NUR ---
DIMITRIOS ANDERSON AT BEDSIDE
[2020-07-08] MEDS ORDERED: ONDANSETRON HCL/PF 4 MG/2 ML VIAL IVP ONE (17:30)
[2020-07-08] MEDS ORDERED: IV NS 0.9% 1,000 ML BAG IV ONE ×2 (17:30→18:30)
[2020-07-08] MEDS ORDERED: PANTOPRAZOLE 40 MG VIAL IV ONE (17:30)
[2020-07-08] MEDS ORDERED: FAMOTIDINE/PF INJ 40 MG in IV D5W 50 ML IV ONE (17:30)
[2020-07-08] MEDS ORDERED: MORPHINE SULFATE INJ 2 MG/ML DISP.SYRIN IV ONE ×2 (17:30→19:00)
[2020-07-08] MEDS ORDERED: METOCLOPRAMIDE HCL 10 MG/2 ML VIAL IV ONE (17:30)
[2020-07-08 17:49] LABS: HEMATOCRIT 50 % (39-51)
[2020-07-08 17:52] LABS: BASOPHILS # (AUTO) 0.1 /CMM (0.0-0.2); BASOPHILS % (AUTO) 0.6 % (0.0-2.0); EOSINOPHILS % (AUTO) 1.7 % (0.0-6.0); HEMOGLOBIN 16.8 g/dL (13.5-17.5); LYMPHOCYTES # (AUTO) 2.9 /CMM (0.8-4.8); LYMPHOCYTES % (AUTO) 25.3 % (20.0-44.0); MEAN CORPUSCULAR HGB CONC 34 g/dl (31.0-36.0); MEAN CORPUSCULAR VOLUME 90 fL (80-96); MONOCYTES # (AUTO) 0.9 /CMM (0.1-1.30); MONOCYTES % (AUTO) 7.6 % (2.0-12.0); NEUTROPHILS # (AUTO) 7.5 /CMM (1.8-8.9); NEUTROPHILS % (AUTO) 64.8 % (43.0-81.0); PLATELET COUNT (AUTO) 339 /CMM (150-450); RED BLOOD CELL COUNT(AUTO) 5.53 MIL/uL (4.5-6.0); WHITE BLOOD COUNT (AUTO) 11.6 K/uL (4.3-11.0)
[2020-07-08] MEDS ORDERED: PANTOPRAZOLE 40 MG VIAL ONE (17:59)
[2020-07-08] MEDS ORDERED: METOCLOPRAMIDE HCL 10 MG/2 ML VIAL ONE (17:59)
[2020-07-08] MEDS ORDERED: ONDANSETRON HCL/PF 4 MG/2 ML VIAL ONE (17:59)
[2020-07-08] MEDS ORDERED: MORPHINE SULFATE INJ 4 MG/ML DISP.SYRIN ONE ×2 (17:59→19:41)
[2020-07-08 18:09] LABS: ALANINE AMINOTRANSFERASE 16 U/L (12-78); ALBUMIN 3.9 g/dL (3.4-5.0); ALKALINE PHOSPHATASE 53 U/L (46-116); ASPARTATE AMINOTRANSFERASE 11 U/L (15-37); BILIRUBIN,DIRECT 0.2 mg/dL (0.0-0.2); BILIRUBIN,TOTAL 0.8 mg/dL (0.2-1.0); LIPASE 101 U/L (73-393)
[2020-07-08 19:03] LABS: OCCULT BLOOD STOOL POSITIVE (NEGATIVE)
[2020-07-08 19:03] LABS: CREATININE 1.2 mg/dL (0.6-1.3)
[2020-07-08 19:04] LABS: CALCIUM, SERUM 8.7 mg/dL (8.5-10.1); CREATININE 1.2 mg/dL (0.6-1.3)
--- NOTE | 2020-07-08 19:18 | NUR ---
CLINICALS AND MOVE PACKET TURNED IN.
--- NOTE | 2020-07-08 19:55 | NUR ---
AMBULATED TO THE RESTROOM WITH A STEADY GAIT.
--- NOTE | 2020-07-08 20:01 | NUR ---
URINE AND COVID SWAB SAMPLE COLLECTED AND SENT TO THE LAB.
[2020-07-08 20:07] LABS: APPEARANCE,URINE Clear (CLEAR); BILIRUBIN,URINE Negative (NEGATIVE); BLOOD, URINE Negative Ery/uL (NEGATIVE); COLOR,URINE Orange (YELLOW); KETONES,URINE 15 (NEGATIVE); LEUKOCYTE ESTERASE ,URINE Negative (NEGATIVE); NITRITE, URINE Negative (NEGATIVE); PH,URINE 5.5 (5.0-8.0); PROTEIN,URINE Negative (NEGATIVE); UGLUCOSE Negative (NEGATIVE); UROBILINOGEN,URINE 0.2 EU/dL (0.2)
[2020-07-08 20:31] LABS: EOSINOPHILS % (MANUAL) 2 % (0-4); LYMPHOCYTES % (MANUAL) 53 % (16-48); MONOCYTES % (MANUAL) 1 % (0-11.0); NEUTROPHILS % (MANUAL) 44 (42-76)
[2020-07-08 20:52] LABS: BACTERIA,URINE Few /HPF (None Seen); RBC,URINE 0-2 /HPF (0-2); SQUAMOUS EPITHELIAL CELL,UR Few /HPF (None Seen); WBC,URINE 0-2 /HPF (0-3)
--- NOTE | 2020-07-08 21:15 | NUR ---
BED ASSIGNMENT 107
[2020-07-08] MEDS ORDERED: HYDROMORPHONE 1 MG/1 ML DISP.SYRIN ONE (21:17)
[2020-07-08] MEDS ORDERED: HYDROMORPHONE 1 MG/1 ML DISP.SYRIN IV ONE (21:30)
--- NOTE | 2020-07-08 21:34 | NUR ---
DR. DURGA DUARTE PER SLADE TEJADA ORDER.
--- NOTE | 2020-07-08 21:46 | NUR ---
DR. ZIMMERMAN SPEECH AND HEARING CLINIC DIRECTOR FOR DR. SUE SALTERD PER ER ORDER.
--- NOTE | 2020-07-08 21:57 | NUR ---
ER PA SPOKE TO DR. CALIXTO REGARDING PT ADMISSION.
--- NOTE | 2020-07-08 22:04 | NUR ---
REPORT GIVEN TO ZEYAD BURLESON FOR MARILYN.
--- NOTE | 2020-07-08 22:20 | NUR ---
RN opening notes Received pt from er awake, a/o x4, cooperative. Irish speaking. Breathing even and unlabored in room air with no sob or acute distress noted. Complained of 8 /10 sharp pain in abdomen via verbal scale. Dr. Dykes seen and examined patient with new order to give dilaudid 1mg ivp for pain and pt will be seen by GI doctor in am. New orders noted and carried out. OSMANY midline patent and IV fluids infusing well. No s/s of infection noted at site. All needs rendered. Call light within reach.
--- NOTE | 2020-07-08 22:21 | NUR ---
PATIENT BROUGHT TO ASSIGNED ROOM FOR MARILYN.
[2020-07-08] MEDS ORDERED: Z GUARD REMEDY 2 OZ OINT TP PRN (22:30)
[2020-07-08] MEDS ORDERED: MORPHINE SULFATE INJ 2 MG/ML DISP.SYRIN IV PRN (22:30)
[2020-07-08] MEDS ORDERED: MAGNESIUM HYDROXIDE 30 ML UDC PO PRN (22:30)
[2020-07-08] MEDS ORDERED: ONDANSETRON HCL/PF 4 MG/2 ML VIAL IVP PRN (22:30)
[2020-07-08] MEDS ORDERED: MAG HYDROX/AL HYDROX/SIMETH 30 ML UDC PO PRN (22:30)
[2020-07-08] MEDS ORDERED: ACETAMINOPHEN 325 MG TABLET PO PRN (22:30)
[2020-07-08] MEDS ORDERED: HYDROCODONE/APAP 5/325MG TABLET PO PRN (22:30)
[2020-07-08] MEDS: IV NS 0.9% 1,000 ML IV PRN (23:52)
[2020-07-09] VITALS: BP 102/53
[2020-07-09] MEDS: HYDROMORPHONE 1 MG/1 ML DISP.SYRIN IV PRN ×3 (00:16→09:33)
--- NOTE | 2020-07-09 01:00 | NUR ---
Tele notes Pt on NPO status. Currently on NS 0.9 at 125ml/hr. Pt sleeping at this time. All needs attended.
[2020-07-09 04:00] VITALS: BP 105/55
--- NOTE | 2020-07-09 06:18 | NUR ---
DR. ROGERS CALLED BACK AND MADE AWARE OF PT CONSULT AND ADMISSION.
--- NOTE | 2020-07-09 06:33 | NUR ---
telecom network manager notes pts in bed awake and responsive ,no sob no distress noted sating 96 % all needs attended too ,call light within reach .pain medication given as ordered ,will endorse to rn day shift for continuity of care.will continue to monitor pt.On npo status,resident for gi consult .v/s stable afebrile.
--- NOTE | 2020-07-09 07:10 | NUR ---
RN OPENING NOTE Received patient awake in bed appears calm and relaxed. On room air tolerating well no signs of distress. AO x4 tele monitor reading sinus rhythm 70-80s. Urinal at bedside. Patient is NPO. Has RAC #18 running NS @ 125cc/hr tolerating well no co pain on IV site or swelling. Safety measures reinforced. Call light within reach. Bed locked and on lowest position. Will cont to monitor.
[2020-07-09] MEDS: IV NS 0.9% 1,000 ML IV PRN (07:37)
[2020-07-09 07:38] LABS: BASOPHILS # (AUTO) 0.1 /CMM (0.0-0.2); BASOPHILS % (AUTO) 1.1 % (0.0-2.0); EOSINOPHILS % (AUTO) 6.1 % (0.0-6.0); HEMATOCRIT 40 % (39-51); HEMOGLOBIN 12.9 g/dL (13.5-17.5); LYMPHOCYTES # (AUTO) 2.8 /CMM (0.8-4.8); LYMPHOCYTES % (AUTO) 32.6 % (20.0-44.0); MEAN CORPUSCULAR HGB CONC 33 g/dl (31.0-36.0); MEAN CORPUSCULAR VOLUME 92 fL (80-96); MONOCYTES # (AUTO) 0.7 /CMM (0.1-1.30); MONOCYTES % (AUTO) 8.4 % (2.0-12.0); NEUTROPHILS # (AUTO) 4.4 /CMM (1.8-8.9); NEUTROPHILS % (AUTO) 51.8 % (43.0-81.0); PLATELET COUNT (AUTO) 263 /CMM (150-450); RED BLOOD CELL COUNT(AUTO) 4.34 MIL/uL (4.5-6.0); WHITE BLOOD COUNT (AUTO) 8.5 K/uL (4.3-11.0)
[2020-07-09 08:00] VITALS: BP 105/56
[2020-07-09 08:27] LABS: CALCIUM, SERUM 7.3 mg/dL (8.5-10.1); MAGNESIUM 2.1 mg/dL (1.8-2.4); POTASSIUM 4.1 mmol/L (3.5-5.1)
--- NOTE | 2020-07-09 08:30 | NUR ---
PATIENT WANTS TO GET ANOTHER PAIN MEDICATION. TOLD HIM NOT UNTIL 0930. INFORMED DR CALIXTO IF WE CAN DO DILAUDID Q3H AWAITING RESPONSE.
[2020-07-09] MEDS ORDERED: PANTOPRAZOLE 40 MG VIAL IV SCH (09:00)
--- NOTE | 2020-07-09 10:15 | NUR ---
PATIENT IS COMPLAINING WANTS TO EAT EXPLAINED HE IS NPO. FOLLOWED UP WITH DR ROGERS. CALLED SURGERY UPSTAIRS TO PLEASE SEE PATIENT. WILL FOLLOW UP.
--- NOTE | 2020-07-09 11:20 | NUR ---
SEEN BY DR. ROGERS ORDERED EGD. CONSENT SIGNED BY PATIENT. PRE-OP IN CHART. CALLED SURGERY SPOKE TO CINDY INFORMED PATIENT IS READY.
[2020-07-09 12:00] VITALS: BP 113/58
--- NOTE | 2020-07-09 12:17 | NUR ---
PATIENT WAS TAKEN TO OR ACCOMPANIED BY 2 NURSES VIA [facility] IN STABLE CONDITION.
--- NOTE | 2020-07-09 13:40 | NUR ---
PATIENT BROUGHT BACK FROM EGD WITH ORDERS FOR REGULAR DIET. SEEN BY DARRELL FOR POSSIBLE DISCHARGE AND WITH ORDERS TO SHAMIKA VALERA.
[2020-07-09] MEDS ORDERED: PANT40TA2 PO (15:15)
[2020-07-09 16:00] VITALS: BP 111/50
--- NOTE | 2020-07-09 18:39 | NUR ---
RN CLOSING NOTE Patient in bed awake no signs of distress. On room air tolerating well. All due meds given. No co pain or discomfort at this time. No signs of bleeding. All discharge paper works completed and signed. Discharge orders given and patient understood. Vital signs within normal limits. Call light within reach, Safety measures maintained. Will endorse to shiftman nurse for moen.
--- NOTE | 2020-07-09 19:21 | NUR ---
RN NOTE PATIENT RESTING IN BED IN STABLE CONDITION. PENDING PRACTICE CONSULTANT FOR DISCHARGE TO HOME. PT AWARE OF DISCHARGE INSTRUCTIONS.
--- NOTE | 2020-07-09 19:54 | NUR ---
RN CLOSING NOTE TELE BOX REMOVED. IV LINE DISCONTINUED. PT DISCHARGED AMBULATORY IN STABLE CONDITION ACCOMPANIED BY RN.
== END 2020-07-09 20:52 | disposition home or self-care (01) | DRG 241 ==
LOC: ER 17:03 → TELE1 21:40
PROVIDERS: ADMIT Internal Medicine; ATTEND Student in an Organized Health Care Education/Training Program
PROC: 0DB68ZX Excision of Stomach, Via Natural or Artificial Opening Endoscopic, Diagnostic (ICD-10-PCS; principal; 2020-07-09)
DX: K26.4 Chronic or unspecified duodenal ulcer with hemorrhage (principal); K21.0 Gastro-esophageal reflux disease with esophagitis; K29.70 Gastritis, unspecified, without bleeding; E87.2 Acidosis; N17.0 Acute kidney failure with tubular necrosis; Z87.891 Personal history of nicotine dependence; K25.4 Chronic or unspecified gastric ulcer with hemorrhage
CPT/HCPCS: 36415; 74021; 80048-TC; 80076-TC; 81000-TC; 82272-TC; 82565-TC; 83605-TC; 83690-TC; 83735-TC; 84100-TC; 84484-TC; 85025-TC; 85730-TC; 86850-TC; 87081-TC; C9113; C9803-CS; G0378; J1170; J2270; J2405; J2765; J3490; J7030; J7060; U0003-CS

== ENCOUNTER 2020-07-12 04:30 | Inpatient (IN) | payer OTHER ==
[~2020-07-12] VITALS: Ht 182.9 cm; Wt 94.9 kg
[~2020-07-12 04:30] MED LIST changes: -AMOX500T2 PO; -CLAR-45 PO; +PANT40TA2 PO; -PANT40VI PO; -SUCR1TAB PO
--- NOTE | 2020-07-12 04:31 | NUR ---
PT AAOX4. BIBRA C/O ABD PAIN (EPIGASTRIC AREA.) PER RA GI BLEED "COFFEE GROUND EMESIS AND BLACK STOOL. PT PLACED IN BED 8 ON MONITOR AND PULSE OX. PT WAS GIVEN 400ML NS COCOA BEAN CLEANER. NOTED HYPOTENSIVE BP 84/52 W HR AT 67. MD AT BEDSIDE FOR EVAL. AWAITING ORDERS.
--- NOTE | 2020-07-12 04:35 | NUR ---
IV INITIATED RH 20G,. NO BLOOD RETURN, AWAITING PHLIBOTOMIST FOR BLOOD DRAW.
[2020-07-12] MEDS ORDERED: PANTOPRAZOLE 40 MG VIAL ONE (04:41)
[2020-07-12] MEDS ORDERED: ONDANSETRON HCL/PF 4 MG/2 ML VIAL ONE ×2 (04:41→06:04)
--- NOTE | 2020-07-12 04:45 | NUR ---
COVID SWAB SENT TO LAB
[2020-07-12] MEDS ORDERED: PANTOPRAZOLE 40 MG VIAL IV ONE (05:00)
[2020-07-12] MEDS ORDERED: IV NS 0.9% 1,000 ML BAG IV ONE (05:00)
[2020-07-12] MEDS ORDERED: ONDANSETRON HCL/PF 4 MG/2 ML VIAL IVP ONE (05:00)
--- NOTE | 2020-07-12 05:01 | NUR ---
PT CLEANED, PROVIDED WITH MORE BLANKETS.
[2020-07-12 05:04] LABS: BASOPHILS # (AUTO) 0.1 /CMM (0.0-0.2); BASOPHILS % (AUTO) 0.9 % (0.0-2.0); EOSINOPHILS % (AUTO) 1.9 % (0.0-6.0); HEMATOCRIT 34 % (39-51); LYMPHOCYTES # (AUTO) 3.9 /CMM (0.8-4.8); LYMPHOCYTES % (AUTO) 45.3 % (20.0-44.0); MEAN CORPUSCULAR HGB CONC 32 g/dl (31.0-36.0); MEAN CORPUSCULAR VOLUME 92 fL (80-96); MONOCYTES # (AUTO) 0.5 /CMM (0.1-1.30); MONOCYTES % (AUTO) 6.1 % (2.0-12.0); NEUTROPHILS # (AUTO) 3.9 /CMM (1.8-8.9); NEUTROPHILS % (AUTO) 45.8 % (43.0-81.0); PLATELET COUNT (AUTO) 321 /CMM (150-450); RED BLOOD CELL COUNT(AUTO) 3.73 MIL/uL (4.5-6.0); WHITE BLOOD COUNT (AUTO) 8.5 K/uL (4.3-11.0)
--- NOTE | 2020-07-12 05:04 | NUR ---
BP IMPROVING, VSS.
[2020-07-12 05:21] LABS: ALBUMIN 2.6 g/dL (3.4-5.0); BILIRUBIN,DIRECT 0.1 mg/dL (0.0-0.2); BILIRUBIN,TOTAL 0.4 mg/dL (0.2-1.0); CALCIUM, SERUM 7.5 mg/dL (8.5-10.1); CREATININE 1.5 mg/dL (0.6-1.3); POTASSIUM 3.9 mmol/L (3.5-5.1); TOTAL PROTEIN, SERUM 5.2 g/dL (6.4-8.2)
--- NOTE | 2020-07-12 05:26 | NUR ---
SPOKE TO AND UPDATED REGARDING PLAN OF CARE. WILL CALL HER BACK WITH ANY UPDATES. NUMBER FOR (DANN)
--- NOTE | 2020-07-12 05:43 | NUR ---
SPOKE TO KASHIF SHOT GRINDER OPERATOR AND REFC'D VERBAL AUTH FOR ADMISSION
--- NOTE | 2020-07-12 05:45 | NUR ---
PAGED DR. CALIXTO PER 'S ORDER
--- NOTE | 2020-07-12 05:51 | NUR ---
DR CALIXTO ON THE PHONE W/ DR HAMILTON
--- NOTE | 2020-07-12 06:20 | NUR ---
SPOKE TO DANN, UPDATED PLAN OF CARE.
--- NOTE | 2020-07-12 06:22 | NUR ---
MED SURG 325-1
[2020-07-12] MEDS ORDERED: ONDANSETRON HCL/PF 4 MG/2 ML VIAL IV ONE (06:30)
[2020-07-12] MEDS ORDERED: MAGNESIUM HYDROXIDE 30 ML UDC PO PRN (06:30)
[2020-07-12] MEDS ORDERED: ACETAMINOPHEN 325 MG TABLET PO PRN (06:30)
[2020-07-12] MEDS ORDERED: Z GUARD REMEDY 2 OZ OINT TP PRN (06:30)
[2020-07-12] MEDS ORDERED: MAG HYDROX/AL HYDROX/SIMETH 30 ML UDC PO PRN (06:30)
[2020-07-12] MEDS ORDERED: HYDROCODONE/APAP 5/325MG TABLET PO PRN (06:30)
--- NOTE | 2020-07-12 06:51 | NUR ---
report given to Idalia on third floor
[2020-07-12] MEDS: IV NS 0.9% 1,000 ML IV PRN (07:49)
[2020-07-12 08:00] VITALS: BP 116/68
[2020-07-12] MEDS: PANTOPRAZOLE 40 MG VIAL IV SCH ×2 (09:26→16:22)
--- NOTE | 2020-07-12 09:31 | NUR ---
RN ADMITTING NOTE Patient arrived on the floor around 0730. Patient is A/O x3, was ambulated to the bathroom and patient made large watery black tarry BM one time. Patient flushed toilet before stool sample could be collected. Patient was then cleaned up and put in bed, weight 209.3lbs. VS 116/68 HR 124, RR 20, T 98.9F O2 97% on RA. Patient is currently NPO per MD orders. IVF running NS @ 75mls/hour. Patient requests for IVP pain medication--Paged MD around 0845. No response yet, will f/u. Bed is in lowest position, side rails x3 in upright position, call light is within reach, fall safety and aspiration precautions enforced. Will continue with plan of care.
--- NOTE | 2020-07-12 09:52 | NUR ---
RN NOTE Per ECONOMIC MANAGER order CT abdomen WO contrast STAT
[2020-07-12 10:00] VITALS: BP 116/70
[2020-07-12 10:52] LABS: BASOPHILS % (AUTO) 0.3 % (0.0-2.0); EOSINOPHILS % (AUTO) 0.1 % (0.0-6.0); HEMATOCRIT 32 % (39-51); HEMOGLOBIN 10.6 g/dL (13.5-17.5); LYMPHOCYTES # (AUTO) 2.6 /CMM (0.8-4.8); LYMPHOCYTES % (AUTO) 23.1 % (20.0-44.0); MEAN CORPUSCULAR HGB CONC 33 g/dl (31.0-36.0); MEAN CORPUSCULAR VOLUME 91 fL (80-96); MONOCYTES # (AUTO) 0.6 /CMM (0.1-1.30); MONOCYTES % (AUTO) 5.5 % (2.0-12.0); NEUTROPHILS # (AUTO) 7.9 /CMM (1.8-8.9); PLATELET COUNT (AUTO) 322 /CMM (150-450); RED BLOOD CELL COUNT(AUTO) 3.56 MIL/uL (4.5-6.0); WHITE BLOOD COUNT (AUTO) 11.2 K/uL (4.3-11.0)
[2020-07-12 10:56] LABS: OCCULT BLOOD STOOL POSITIVE (NEGATIVE)
[2020-07-12] MEDS: HYDROMORPHONE 1 MG/1 ML DISP.SYRIN IV PRN ×4 (11:52→20:27)
[2020-07-12] MEDS: SUCRALFATE 1 G TABLET PO SCH ×3 (12:49→22:47)
--- NOTE | 2020-07-12 14:40 | NUR ---
RN NOTE Patient made 3 bloody dark stool so far this shift. Charge nurse made aware. H&H scheduled at 1600.
[2020-07-12 16:00] VITALS: BP 116/68
[2020-07-12] MEDS ORDERED: HYDROMORPHONE 1 MG/1 ML DISP.SYRIN IV PRN (16:00)
--- NOTE | 2020-07-12 16:33 | NUR ---
RN NOTE Informed Mckeon TIN STACKER that patient continues to complain of severe pain in abdomen. Ok per TIN STACKER to increase dilauded to 1mg Q4H PRN.
[2020-07-12 17:09] LABS: HEMOGLOBIN 9.6 g/dL (13.5-17.5)
--- NOTE | 2020-07-12 18:00 | NUR ---
RN NOTE Informed SERVICES COORDINATOR that patient's Hgb went down from 10.6 to 9.6 this afternoon. No telephone orders per SERVICES COORDINATOR, stated he will contact [facility] again and put in orders. Charge nurse made aware. Also per SERVICES COORDINATOR, to keep patient NPO.
[2020-07-12 20:00] VITALS: BP 143/75
--- NOTE | 2020-07-12 20:00 | NUR ---
MS RN OPENING NOTE: Patient in bed awake, alert, oriented x4. Patient able to make needs known. Observed patient ambulate to the door with steady gait. Patient NPO. Patient breathing well on room air, breathing equal and unlabored. No respiratory distress or SOB noted. Noted IV access on right wrist 20 gauge and left AC 18 gauge. Both IV access are dry and intact, they are both patent, no redness, or infiltration. Safety precaution is in place, bed is in the lowest level, brakes are on, side rails x2 are up, and call light is within reach. Will continue to monitor.
--- NOTE | 2020-07-12 20:10 | NUR ---
RN CLOSING NOTE Patient is resting in bed, A/O x4, showing no signs of acute distress or SOB, stable on RA. Iv lines in the right wrist #20g is clean and intact running NS @ 75mls/hour. LAC is clean and intact flushing well. Patient is still NPO per STITCH BONDING MACHINE OPERATOR orders. Patient had a total of 3 BM bloody dark stools, able to ambulate with assist to bathroom. Patient shower x1 today with stand-by assist. All patient needs met, all due medications given, patient kept clean and dry throughout shift, fall safety and aspiration precautions enforced. Will endorse to shift supervisor film processing.
[2020-07-12 20:11] VITALS: BP 143/75
--- NOTE | 2020-07-12 20:27 | NUR ---
MS RN NOTE: Patient complains of abdominal pain. Patient describes pain as aching and rates pain 8 on a 0-10 numerical scale. Administered PRN Dilaudid per MD order. Will continue to monitor.
--- NOTE | 2020-07-12 20:43 | NUR ---
MS RN NOTE: Patient off the unit. Patient in no apparent distress. Lane from radiology picked him up on a wheelchair.
--- NOTE | 2020-07-12 20:57 | NUR ---
MS RN NOTE: Reassessed patient pain. Patient rates pain a 6 on a 0-10 numerical scale and describes it as aching. Will continue to monitor.
--- NOTE | 2020-07-12 22:37 | NUR ---
MS RN NOTE: Patient back from radiology. Patient is awake, alert, and oriented x4. No SOB or respiratory distress noted. Will continue to monitor.
--- NOTE | 2020-07-13 00:30 | NUR ---
MS RN NOTE: Patient complains of abdominal pain. Patient describes pain as aching and rates pain an 8 on a 0-10 numerical scale. Administered PRN Dilaudid per MD order. Will continue to monitor.
[2020-07-13] MEDS: HYDROMORPHONE 1 MG/1 ML DISP.SYRIN IV PRN ×6 (00:31→20:15)
--- NOTE | 2020-07-13 01:01 | NUR ---
MS RN NOTE: Reassessed pain. Patient rates pain 6 on a 0-10 numerical scale and states pain medication is effective. Will continue to monitor.
[2020-07-13 01:45] LABS: HEMOGLOBIN 8.8 g/dL (13.5-17.5)
--- NOTE | 2020-07-13 04:05 | NUR ---
MS RN NOTE: Patient complains of pain, dizziness, and feeling nausea. Checked BP 107/62 HR 76. No change in Abdomen. Made MD aware of patient complains, as well as his Hgb tranding down. MD stated it was okay to give PRN Dilaudid and monitor BP. No new orders at this time.
[2020-07-13] MEDS: ONDANSETRON HCL/PF 4 MG/2 ML VIAL IVP PRN ×2 (04:38→13:17)
--- NOTE | 2020-07-13 04:38 | NUR ---
MS RN NOTE: Patient complains of Nausea but no vomiting. Administered PRN Zofran per MD order. Will continue to monitor.
--- NOTE | 2020-07-13 04:50 | NUR ---
MS RN NOTE: Patient complains of abdominal pain. Patient describes pain as aching and rates it an 8/10. Administered PRN Dilaudid per MD order. Will continue to monitor.
--- NOTE | 2020-07-13 05:08 | NUR ---
MS RN NOTE: Reassessed nausea. Patient states nausea improved. Will continue to monitor.
--- NOTE | 2020-07-13 05:20 | NUR ---
MS RN NOTE: Patient in bed sleeping comfortably. Patient shows no signs of pain. Will continue to monitor.
[2020-07-13 06:09] LABS: APPEARANCE,URINE CLEAR (CLEAR); BILIRUBIN,URINE SMALL (NEGATIVE); BLOOD, URINE NEGATIVE Ery/uL (NEGATIVE); COLOR,URINE YELLOW (YELLOW); KETONES,URINE TRACE (NEGATIVE); LEUKOCYTE ESTERASE ,URINE NEGATIVE (NEGATIVE); NITRITE, URINE NEGATIVE (NEGATIVE); PROTEIN,URINE NEGATIVE (NEGATIVE); UGLUCOSE NEGATIVE (NEGATIVE); UROBILINOGEN,URINE 0.2 EU/dL (0.2)
--- NOTE | 2020-07-13 06:33 | NUR ---
MS RN CLOSING NOTE: Patient in bed, awake, alert, and oriented x4. Patient able to make needs known. Patient breathing well on room air and in no apparent respiratory distress, No SOB noted. Safety precaution is in place, bed is in the lowest level, brakes are on, side rails x2 are up, and call light is within reach. Will continue to monitor.
[2020-07-13 07:03] LABS: CALCIUM, SERUM 7.4 mg/dL (8.5-10.1); CREATININE 1.1 mg/dL (0.6-1.3); MAGNESIUM 2.1 mg/dL (1.8-2.4); PHOSPHORUS 2.7 mg/dL (2.5-4.9); POTASSIUM 3.8 mmol/L (3.5-5.1)
[2020-07-13 08:00] VITALS: BP 117/63
[2020-07-13] MEDS: IV NS 0.9% 1,000 ML IV PRN (08:30)
[2020-07-13] MEDS: SUCRALFATE 1 G TABLET PO SCH ×4 (08:38→21:26)
[2020-07-13] MEDS: PANTOPRAZOLE 40 MG VIAL IV SCH ×2 (08:38→17:05)
[2020-07-13] MEDS ORDERED: PEG 3350/NA SULF,BICARB,CL/KCL 4,000 ML BOTTLE PO ONE (09:00)
--- NOTE | 2020-07-13 09:10 | NUR ---
Received call from Linda Christine NP; start pt on clear liquid , obtain consent for coloscopy /EDG , start preparation for colonoscopy.
--- NOTE | 2020-07-13 09:49 | NUR ---
Patient started on Golytely solut. ; must drink as much as possible before 1200 pm today
[2020-07-13 10:23] LABS: BASOPHILS # (AUTO) 0.1 /CMM (0.0-0.2); BASOPHILS % (AUTO) 0.9 % (0.0-2.0); EOSINOPHILS % (AUTO) 3.4 % (0.0-6.0); HEMATOCRIT 26 % (39-51); HEMOGLOBIN 8.6 g/dL (13.5-17.5); LYMPHOCYTES # (AUTO) 2.3 /CMM (0.8-4.8); LYMPHOCYTES % (AUTO) 35.4 % (20.0-44.0); MEAN CORPUSCULAR HGB CONC 33 g/dl (31.0-36.0); MEAN CORPUSCULAR VOLUME 92 fL (80-96); MONOCYTES # (AUTO) 0.5 /CMM (0.1-1.30); MONOCYTES % (AUTO) 8.1 % (2.0-12.0); NEUTROPHILS # (AUTO) 3.4 /CMM (1.8-8.9); NEUTROPHILS % (AUTO) 52.2 % (43.0-81.0); PLATELET COUNT (AUTO) 228 /CMM (150-450); RED BLOOD CELL COUNT(AUTO) 2.87 MIL/uL (4.5-6.0); WHITE BLOOD COUNT (AUTO) 6.5 K/uL (4.3-11.0)
[2020-07-13 10:52] LABS: EOSINOPHILS % (MANUAL) 3 % (0-4); LYMPHOCYTES % (MANUAL) 39 % (16-48); MONOCYTES % (MANUAL) 7 % (0-11.0); NEUTROPHILS % (MANUAL) 51 (42-76)
[2020-07-13 11:15] LABS: BACTERIA,URINE None seen /HPF (None Seen); RBC,URINE NONE SEEN /HPF (0-2); SQUAMOUS EPITHELIAL CELL,UR Few /HPF (None Seen); WBC,URINE NONE SEEN /HPF (0-3)
--- NOTE | 2020-07-13 11:35 | NUR ---
PER VIKTORIYA NECK BAND MAKER FREQUENCY OF DILAUDID CHANGED TO Q3HR
[2020-07-13 14:31] LABS: HEMOGLOBIN 8.4 g/dL (13.5-17.5)
[2020-07-13 16:00] VITALS: BP 137/71
--- NOTE | 2020-07-13 17:25 | NUR ---
Patient picked up by OR staff for procedure .
--- NOTE | 2020-07-13 19:50 | NUR ---
MS RN OPENING NOTES RECEIVED PATIENT FROM SURGERY S/P EGD AND COLONOSCOPY, ALERT AND ORIENTED X 4. VERBALLY RESPONSIVE AND ABLE TO FOLLOW DIRECTIONS. BREATHING REGULAR AND UNLABORED ON ROOM AIR. RIGHT WRITS G20 AND LEFT AC G18 IV LINE S INTACT AND PATENT, FLUSHING WELL WITH NO BLEEDING OR S/S OF INFILTRATION NOTED. COMPLAINED OF 8/10 ABDOMINAL PAIN, NON-PHARMACOLOGICAL INTERVENTIONS PROVIDED. VITAL SIGNS TAKEN AND DOCUMENTED. BED LOW AND LOCKED ON SEMI FOWLERS POSITION. CALL LIGHT IN REACH. WILL CONTINUE TO MONITOR.
[2020-07-13 20:00] VITALS: BP 117/70
--- NOTE | 2020-07-13 20:00 | NUR ---
MS RN NOTES PATIENT ASKED IF HE CAN HAVE SOMETHING TO EAT, DOUBLE CHECKED MD ORDER FOR ADVANCE DIET WITH NONE NOTED. NOTIFIED AWAITING ORDERS.
--- NOTE | 2020-07-13 21:00 | NUR ---
MS RN NOTES ORDERS TO ADVANCE DIET TO CLEAR LIQUIDS RECEIVED FROM NICHOLAS MAYA AND NOTED AND CARRIED OUT. WATER, JELL-O AND CLEAR JUICES PROVIDED ON PATIENT'S BED SIDE. WILL CONTINUE TO MONITOR.
[2020-07-13] MEDS: CLARITHROMYCIN 500 MG TABLET PO SCH (21:26)
--- NOTE | 2020-07-13 22:00 | NUR ---
MS RN NOTES PATIENT COMPLAINED OF NOT BEING ABLE TO SLEEP FOR THE PAST FEW DAYS AND REQUESTING FOR A SLEEPING MEDICATION, NICHOLAS MAYA MADE AWARE WITH ORDERS TO GIVE AMBIEN 5MG PO ONE TIME ONLY AT 2300, DC DILAUDID 1MG IVP AND CHANGE TO TYLENOL 650MG PO, NOTED AND CARRIED OUT.
[2020-07-13] MEDS ORDERED: ZOLPIDEM TARTRATE 5 MG TABLET PO ONE (23:00)
--- NOTE | 2020-07-14 06:20 | NUR ---
MS RN NOTES REFUSED BLOOD DRAW FOR LAB, RISK AND BENEFITS EXPLAINED.
--- NOTE | 2020-07-14 06:35 | NUR ---
MS RN CLOSING NOTES PATIENT IN BED ALERT AND ORIENTED X 4. AFEBRILE WITH NO S/S OF DISTRESS OBSERVED. RIGHT WRIST G20 AND LEFT AC G18 IV LINE PATENT AND INFUSING WELL. NO REPORTS OF PAIN/DISCOMFORT AT THIS TIME. BED LOW AND LOCKED ON SEMI FOWLERS POSITION. CALL LIGHT IN REACH. WILL ENDORSE TO MORNING SHIFT FOR MARILYN
[2020-07-14] MEDS: SUCRALFATE 1 G TABLET PO SCH ×4 (06:36→21:12)
[2020-07-14 07:51] LABS: BASOPHILS % (AUTO) 0.9 % (0.0-2.0); EOSINOPHILS % (AUTO) 6.4 % (0.0-6.0); HEMATOCRIT 24 % (39-51); HEMOGLOBIN 7.9 g/dL (13.5-17.5); LYMPHOCYTES # (AUTO) 1.4 /CMM (0.8-4.8); LYMPHOCYTES % (AUTO) 27.7 % (20.0-44.0); MEAN CORPUSCULAR HGB CONC 33 g/dl (31.0-36.0); MEAN CORPUSCULAR VOLUME 91 fL (80-96); MONOCYTES # (AUTO) 0.4 /CMM (0.1-1.30); MONOCYTES % (AUTO) 8.3 % (2.0-12.0); NEUTROPHILS # (AUTO) 2.8 /CMM (1.8-8.9); NEUTROPHILS % (AUTO) 56.7 % (43.0-81.0); PLATELET COUNT (AUTO) 230 /CMM (150-450); RED BLOOD CELL COUNT(AUTO) 2.65 MIL/uL (4.5-6.0)
[2020-07-14 08:00] VITALS: BP 101/60
[2020-07-14 08:05] LABS: CALCIUM, SERUM 7.6 mg/dL (8.5-10.1); CREATININE 0.9 mg/dL (0.6-1.3); POTASSIUM 3.5 mmol/L (3.5-5.1)
[2020-07-14] MEDS ORDERED: AMOXICILLIN TRIHYDRATE 500 MG CAPSULE PO SCH (09:00)
[2020-07-14] MEDS: AMOXICILLIN TRIHYDRATE 250 MG CAPSULE PO SCH ×2 (09:01→16:56)
[2020-07-14] MEDS: PANTOPRAZOLE 40 MG VIAL IV SCH ×2 (09:01→16:56)
[2020-07-14] MEDS: CLARITHROMYCIN 500 MG TABLET PO SCH ×2 (09:01→21:12)
[2020-07-14 09:05] LABS: EOSINOPHILS % (MANUAL) 6 % (0-4); LYMPHOCYTES % (MANUAL) 30 % (16-48); MONOCYTES % (MANUAL) 7 % (0-11.0); NEUTROPHILS % (MANUAL) 57 (42-76)
--- NOTE | 2020-07-14 15:00 | NUR ---
Received telephone order for PRN Dilaudid 1 mg Q4hr IV push. Order placed
[2020-07-14 15:07] LABS: HEMOGLOBIN 8.6 g/dL (13.5-17.5)
[2020-07-14] MEDS: HYDROMORPHONE 1 MG/1 ML DISP.SYRIN IV PRN ×2 (15:16→19:41)
[2020-07-14 16:00] VITALS: BP 134/74
[2020-07-14] MEDS: ONDANSETRON HCL/PF 4 MG/2 ML VIAL IVP PRN ×2 (16:56→23:11)
--- NOTE | 2020-07-14 19:16 | NUR ---
Patient is resting in bed. No complain of pain at this time. Patient remains on clear liquid , tolerated well. IV line intact and patent. Patient took a shower and tolerated well. All needs attended. Safety mesures im place . will endorse to next shift for MARILYN
--- NOTE | 2020-07-14 19:30 | NUR ---
MS RN OPENING NOTES RECEIVED PATIENT FROM MORNING SHIFT, ALERT AND ORIENTED X 4. VERBALLY RESPONSIVE AND ABLE TO FOLLOW DIRECTIONS. BREATHING REGULAR AND UNLABORED ON ROOM AIR. RIGHT WRITS G20 AND LEFT AC G18 IV LINES INTACT AND PATENT, FLUSHING WELL WITH NO BLEEDING OR S/S OF INFILTRATION NOTED. COMPLAINED OF 8/10 ABDOMINAL PAIN, NON-PHARMACOLOGICAL INTERVENTIONS PROVIDED. BED LOW AND LOCKED ON SEMI FOWLERS POSITION. CALL LIGHT IN REACH. WILL CONTINUE TO MONITOR.
--- NOTE | 2020-07-14 19:45 | NUR ---
MS RN NOTES COMPLAINED OF 8/10 ABDOMINAL PAIN, DILAUDID 0.5MG OF 1MG ORDERED GIVEN IVP PER PATIENT'S REQUEST. NON-PHARMACOLOGICAL INTERVENTIONS PROVIDED. VITAL SIGNS WNL. WILL CONTINUE TO MONITOR.
[2020-07-14 20:00] VITALS: BP 141/79
--- NOTE | 2020-07-14 21:00 | NUR ---
MS RN NOTES PATIENT REQUESTING FOR A SLEEPING MEDICATION, NICHOLAS MAYA MADE AWARE WITH ORDERS TO GIVE AMBIEN 5MG PO PRN AT BEDTIME AND TO CHANGE DILAUDID TO 0.5MG IVP EVERY 4HRS PRN, NOTED AND CARRIED OUT.
[2020-07-14] MEDS: ZOLPIDEM TARTRATE 5 MG TABLET PO PRN (22:09)
[2020-07-15] MEDS: SUCRALFATE 1 G TABLET PO SCH ×4 (06:30→21:08)
[2020-07-15 08:00] VITALS: BP 128/70
--- NOTE | 2020-07-15 08:00 | NUR ---
MS RN OPENING NOTES RECEIVED PATIENT ALERT AND ORIENTED X 4. VERBALLY RESPONSIVE AND ABLE TO FOLLOW DIRECTIONS. BREATHING REGULAR AND UNLABORED ON ROOM AIR. RIGHT WRIST G20 AND LEFT AC G18 IV LINES INTACT AND PATENT, FLUSHING WELL WITH NO BLEEDING OR S/S OF INFILTRATION NOTED. NON-PHARMACOLOGICAL INTERVENTIONS PROVIDED. BED LOW AND LOCKED ON SEMI FOWLERS POSITION. CALL LIGHT IN REACH. WILL CONTINUE TO MONITOR.
[2020-07-15 09:43] LABS: BASOPHILS % (AUTO) 0.6 % (0.0-2.0); EOSINOPHILS % (AUTO) 2.6 % (0.0-6.0); HEMATOCRIT 25 % (39-51); HEMOGLOBIN 8.4 g/dL (13.5-17.5); LYMPHOCYTES # (AUTO) 2.2 /CMM (0.8-4.8); LYMPHOCYTES % (AUTO) 42.5 % (20.0-44.0); MEAN CORPUSCULAR HGB CONC 33 g/dl (31.0-36.0); MEAN CORPUSCULAR VOLUME 90 fL (80-96); MONOCYTES # (AUTO) 0.5 /CMM (0.1-1.30); MONOCYTES % (AUTO) 9.6 % (2.0-12.0); NEUTROPHILS # (AUTO) 2.4 /CMM (1.8-8.9); NEUTROPHILS % (AUTO) 44.7 % (43.0-81.0); PLATELET COUNT (AUTO) 271 /CMM (150-450); RED BLOOD CELL COUNT(AUTO) 2.82 MIL/uL (4.5-6.0); WHITE BLOOD COUNT (AUTO) 5.2 K/uL (4.3-11.0)
[2020-07-15] MEDS: AMOXICILLIN TRIHYDRATE 250 MG CAPSULE PO SCH ×2 (09:44→17:31)
[2020-07-15] MEDS: CLARITHROMYCIN 500 MG TABLET PO SCH ×2 (09:44→20:12)
[2020-07-15 09:49] LABS: CREATININE 0.9 mg/dL (0.6-1.3); POTASSIUM 3.4 mmol/L (3.5-5.1)
[2020-07-15] MEDS: HYDROMORPHONE 1 MG/1 ML DISP.SYRIN IV PRN ×3 (10:42→19:13)
[2020-07-15] MEDS: ONDANSETRON HCL/PF 4 MG/2 ML VIAL IVP PRN ×2 (12:24→19:38)
[2020-07-15 12:59] LABS: LYMPHOCYTES % (MANUAL) 26 % (16-48); MONOCYTES % (MANUAL) 7 % (0-11.0); NEUTROPHILS % (MANUAL) 67 (42-76)
[2020-07-15] MEDS ORDERED: POTASSIUM CHLORIDE 20 MEQ TAB.PRT.SR PO SCH (14:30)
[2020-07-15 14:56] LABS: HEMOGLOBIN 8.9 g/dL (13.5-17.5)
[2020-07-15 16:00] VITALS: BP 141/81
[2020-07-15] MEDS ORDERED: METOCLOPRAMIDE HCL 10 MG/2 ML VIAL IV PRN (16:00)
--- NOTE | 2020-07-15 18:00 | NUR ---
PT WATCHING BASKETBALL ON TV.PAIN AND NAUSEA MGT EFFECTIVE AT THIS TIME.CALL LIGHT PLACED WITHIN REACH.
[2020-07-15] MEDS: IV NS 0.9% 1,000 ML IV PRN (19:13)
--- NOTE | 2020-07-15 19:46 | NUR ---
MS RN OPENING NOTES PATIENT AWAKE IN BED. A/OX4; ABLE TO VERBALIZE NEEDS. ON RA. NO S/S OF ACUTE RESPIRATORY DISTRESS; BREATHING IS EVEN AND UNLABORED. NO C/O PAIN AT THIS TIME. PATIENT C/O NAUSEA; PRN ZOFRAN 4MG GIVEN PER PATIENT'S REQUEST AT 1938. IV PRESENT ON RIGHT WRIST, SIZE 20, INTACT & PATENT, HEP LOCKED. IV PRESENT ON LEFT AC, SIZE 18, INTACT & PATENT WITH NS RUNNING AT 75 ML/HR. SAFETY MEASURES IN PLACE AND PATIENT'S NEEDS MET. BED LOCKED, HOB ELEVATED, SIDE RAILS X2, CALL LIGHT WITHIN REACH. WILL CONTINUE TO MONITOR.
[2020-07-15 20:00] VITALS: BP 133/76
[2020-07-15 20:01] VITALS: BP 133/76
[2020-07-15] MEDS: ZOLPIDEM TARTRATE 5 MG TABLET PO PRN (20:12)
[2020-07-15 21:28] LABS: HEMOGLOBIN 8.7 g/dL (13.5-17.5)
[2020-07-16] VITALS (9 sets, daily range): BP systolic 119–145; BP diastolic 59–85
[2020-07-16] MEDS: IV NS 0.9% 1,000 ML IV PRN ×2 (05:56→23:27)
--- NOTE | 2020-07-16 06:34 | NUR ---
MS RN CLOSING NOTES PATIENT SLEEPING, EASY TO AWAKEN. A/OX4. ON RA. NO S/S OF ACUTE RESPIRATORY DISTRESS; BREATHING IS EVEN AND UNLABORED. NO C/O PAIN OR NAUSEA AT THIS TIME. IV PRESENT ON RIGHT WRIST, SIZE 20, INTACT & PATENT, HEP LOCKED. IV PRESENT ON LEFT AC, SIZE 18, INTACT & PATENT WITH NS RUNNING AT 75 ML/HR. SAFETY MEASURES IN PLACE AND PATIENT'S NEEDS MET. BED LOCKED, HOB ELEVATED, SIDE RAILS X2, CALL LIGHT WITHIN REACH. WILL ENDORSE TO DAY SHIFT RN PLAN OF CARE.
[2020-07-16] MEDS: SUCRALFATE 1 G TABLET PO SCH ×4 (06:54→21:32)
--- NOTE | 2020-07-16 07:20 | NUR ---
MS RN OPENING NOTES RECEIVED PATIENT IN BED AWAKE BUT DOSING IN AND OUT OF SLEEP. A/OX4. PATIENT ON ROOM AIR; BREATHING EVEN AND UNLABORED; NO SOB PRESENT. NO COMPLAINS OF PAIN OR NAUSEA AT THIS TIME. IV PRESENT ON RIGHT WRIST, SIZE 20, INTACT & PATENT, HEP LOCKED. IV PRESENT ON LEFT AC, SIZE 18, INTACT & PATENT WITH NS RUNNING AT 75 ML/HR. SAFETY PRECAUTIONS IN PLACE; BED IN LOW POSITION AND LOCKED, HOB ELEVATED, RAILS UP X2, CALL LIGHT WITHIN REACH. WILL CONTINUE TO MONITOR PATIENT.
[2020-07-16] MEDS: PANTOPRAZOLE 40 MG TABLET.DR PO SCH ×2 (08:04→16:33)
[2020-07-16] MEDS: AMOXICILLIN TRIHYDRATE 250 MG CAPSULE PO SCH ×2 (08:04→16:33)
[2020-07-16] MEDS: CLARITHROMYCIN 500 MG TABLET PO SCH ×2 (08:04→21:32)
--- NOTE | 2020-07-16 08:39 | NUR ---
MS RN NOTES PATIENT COMPLAINING OF PAIN 8/10 AND NAUSEA. REQUESTING PRN PAIN AND ANTI-NAUSEA MEDICATIONS.
[2020-07-16] MEDS: ONDANSETRON HCL/PF 4 MG/2 ML VIAL IVP PRN ×2 (08:40→16:04)
[2020-07-16] MEDS: HYDROMORPHONE 1 MG/1 ML DISP.SYRIN IV PRN ×4 (08:41→21:32)
[2020-07-16 09:17] LABS: BASOPHILS % (AUTO) 0.9 % (0.0-2.0); EOSINOPHILS % (AUTO) 3.5 % (0.0-6.0); HEMATOCRIT 24 % (39-51); HEMOGLOBIN 8.1 g/dL (13.5-17.5); LYMPHOCYTES # (AUTO) 1.2 /CMM (0.8-4.8); LYMPHOCYTES % (AUTO) 31.8 % (20.0-44.0); MEAN CORPUSCULAR HGB CONC 33 g/dl (31.0-36.0); MEAN CORPUSCULAR VOLUME 88 fL (80-96); MONOCYTES # (AUTO) 0.3 /CMM (0.1-1.30); MONOCYTES % (AUTO) 7.1 % (2.0-12.0); NEUTROPHILS # (AUTO) 2.2 /CMM (1.8-8.9); NEUTROPHILS % (AUTO) 56.7 % (43.0-81.0); PLATELET COUNT (AUTO) 293 /CMM (150-450); RED BLOOD CELL COUNT(AUTO) 2.76 MIL/uL (4.5-6.0); WHITE BLOOD COUNT (AUTO) 3.8 K/uL (4.3-11.0)
[2020-07-16 09:26] LABS: CALCIUM, SERUM 7.8 mg/dL (8.5-10.1); POTASSIUM 3.2 mmol/L (3.5-5.1)
--- NOTE | 2020-07-16 12:24 | NUR ---
RN NOTE RECEIVED ORDER FRON NICHOLAS HARMON FOR PT EVALUATION. NOTED AND CARRIED OUT.
--- NOTE | 2020-07-16 12:29 | NUR ---
RN NOTE RECEIVED AN ORDER FROM NICHOLAS HARMON FOR ORTHOSTATIC BLOOD PRESSURE CHECK. NOTED AND CARRIED OUT.
[2020-07-16 18:42] LABS: HEMOGLOBIN 8.2 g/dL (13.5-17.5)
--- NOTE | 2020-07-16 18:52 | NUR ---
MS RN CLOSING NOTES PATIENT IN BED AWAKE, WALKING AROUND THE UNIT, A/OX4. PATIENT ON ROOM AIR; BREATHING EVEN AND UNLABORED; NO SOB PRESENT. PAIN AND NAUSEA TREATED WITH PRN MEDICATIONS DURING THE SHIFT. IV PRESENT ON LEFT AC, SIZE 18, INTACT & PATENT WITH NS RUNNING AT 75 ML/HR. ALL NEEDS ATTENDED TO THROUGHOUT THE DAY. SAFETY PRECAUTIONS IN PLACE; BED IN LOW POSITION AND LOCKED, HOB ELEVATED, RAILS UP X2, CALL LIGHT WITHIN REACH. WILL ENDORSE TO [employer]FFL[employer] TENDER NURSE.
--- NOTE | 2020-07-16 19:30 | NUR ---
rn notes: pt provided with magazines and newspaper, also pt refused using call light and cellphone due to holiday. made a deal with pt that someone will be sitting outside the room so in case he ask for help someone will hear him and can come right away. pt agree.
--- NOTE | 2020-07-16 20:13 | NUR ---
rn notes: spoked with pt, discussed plan of care. pt ambulating around hallway. a/o x4, on ra, respiration even and unlabored. per pt he's appetite still poor, could be the food isnt appetizing according to pt. he stated he's hoping he can be discharge soon however also afraid that he might passed out again at home. informed pt we will do orthostatic bp monitoring. educate pt regarding orthostatic bp purpose and action.
--- NOTE | 2020-07-16 21:00 | NUR ---
RN NOTES: PT COMPLAINING ABOUT HOSPITAL/KITCHEN FOOD. STATED FOR ALL THOSE DAYS HE'S BEEN HERE, HE RECEIVED NOTHING BUT A PIECE OF AWFUL TASTING FOOD DESCRIBED/WORDED BY PT. HE REITERATE ONE BY ONE HOW HE WAS DISGUSTED WITH THE FOOD THEY SERVED FROM THE KITCHEN. HE STATED HE RECEIVED A FROZEN PIECE OF FISH WITH PASTA AND SOME VEGGIES AND ITS SMELLS AWFUL. ALSO HE ADDED, THEY SERVED SANJEEV STEAK AND HE CLAIMED IT WAS HARD ICE. RECEIVED NOTHING BUT COMPLAINED ABOUT THE HOSPITAL FOOD. PT STATED HE WASN'T ABLE TO EAT ANYTHING FOR THE PAST 6 DAYS HE'S HERE. OFFERED PATIENT SOME SNACK HE CAN HAVE THROUGH THE NIGHT, AND ALSO PROVIDED FOR OPTION THAT IF HE WOULD LIKE TO ORDER OUTSIDE OF BRING SOME FOOD FROM HOME THAT WOULD BE ACCEPTABLE PT FOLLOWING [employer], AND IS SPIRITISM. PT WAS NOTED TO BE VERY PARTICULAR WITH HIS NEEDS. INCLUDING SIMPLE THINGS, HE WILL ASK OTHERS TO DO IT FOR HIM, ALTHOUGH HE HAS FUNCTIONAL ARMS AND HANDS, APPEARS TO BE DOMINANT, AND BEHAVIOR/MOOD CHANGE IN INSTANT.
--- NOTE | 2020-07-16 21:33 | NUR ---
prn dilaudid: pt c/o 5/10 abdominal pain, pt requesting for 0.25 ml of dilaudid only, notified director of campus recreation hospitalist, per md conde to give dilaudid 0.25ml for 5/10 pain. prn dilaudid 0.25 ml administered to pt at this time. education provided to pt regarding medication side effect.
[2020-07-16] MEDS: ZOLPIDEM TARTRATE 5 MG TABLET PO PRN (22:12)
--- NOTE | 2020-07-16 22:12 | NUR ---
prn ambien: pt c/o insomnia, requesting for ambien. prn ambien 5mg po tab administered to pt at this time.
--- NOTE | 2020-07-16 22:49 | NUR ---
rn notes: pt has food brought from home. asked b y pt to warm the bread from home. provided with 2 butter found in pt's allotted fridge. also provided with handful of saltine cracker and 2 pudding, with 1 box of prune juice. pt very happy and pleased, stated this is the first time he will be able to eat in 6days.
[2020-07-16] MEDS: ACETAMINOPHEN 325 MG TABLET PO PRN (23:34)
--- NOTE | 2020-07-16 23:34 | NUR ---
PRN TYLENOL: PT C/O HEAD ACHE 01/04 REQUESTING FOR TYLENOL, PRN TYLENOL 650 MG TAB PO ADMINISTERED TO PT AT THIS TIME.
--- NOTE | 2020-07-17 00:15 | NUR ---
transfer of care notes: pt sleeping, appears calm and comfortable. iv access remains patent and flushing well, on hl. pt on carafate and protonix for gastritis and internal hemorrhoid. endorsed to asa shafer for continuity of care.
--- NOTE | 2020-07-17 00:20 | NUR ---
MS/RN NOTES: REPORT GIVEN BY RN SOFIYA FOR MARILYN. RECEIVED PT IN BED, RESTING COMFORTABLY. A/OX4. IN STABLE CONDITION. NO SOB NOTED. ON ROOM AIR. NO S/S OF DISTRESS. NO C/O PAIN AT THIS TIME. PT ASKED FOR NAN CRACKERS AND SALTINE CRACKERS, GIVEN. IV ON THE LEFT AC #18 INTACT AND PATENT, H.L. SAFETY MEASURES IN PLACE. BED IN LOW, LOCKED POSITION WITH SR UP X2. CALL LIGHT WITHIN REACH. WILL CONTINUE TO MONITOR ACCORDINGLY.
--- NOTE | 2020-07-17 06:43 | NUR ---
MS/RN CLOSING NOTES: PT REMAINS IN BED, RESTING COMFORTABLY. NO SIGNIFICANT CHANGES IN CONDITION. A/OX4. IN STABLE CONDITION. NO SOB NOTED. ON ROOM AIR. NO S/S OF DISTRESS. NO C/O PAIN AT THIS TIME. IV ON THE LEFT AC #18 INTACT AND PATENT, H.L. SAFETY MEASURES IN PLACE. BED IN LOW, LOCKED POSITION WITH SR UP X2. CALL LIGHT WITHIN REACH. WILL ENDORSE TO DAY SHIFT FOR MARILYN.
--- NOTE | 2020-07-17 07:30 | NUR ---
M/S RN OPENING NOTES RECEIVED PT ON BED, A/OX4, ASLEEP BUT EASILY AROUSABLE. NO PRESENCE OF ACUTE RESPIRATORY DISTRESS, ON ROOM AIR SATING 96%. ABD SOFT AND NON DISTENDED, LBM 9/18 WITH URGE, CONT B&B. DENIES PAIN AND DISCOMFORT AT THIS TIME. SKIN WARM TO TOUCH AN DRY, INTACT. INDEPENDENT IN BED MOBILITY. IV SITE AT LEFT AC PATENT IN FLUSHING, NO S/SX OF INFILTRATION WITH NS AT 75 ML/HR-PT REFUSED TO BE CONNECTED, STATED IF HE'S FULLY AWAKE THEN IV CAN BE CONNECTED TO PREVENT PULLING OF SITE. CALL LIGHT WITHIN REACH. BED IN LOW LOCKED POSITION, SRX2 UP FOR SAFETY. WILL CONT TO EVALUATE CARE.
[2020-07-17] MEDS: SUCRALFATE 1 G TABLET PO SCH ×3 (07:39→16:55)
[2020-07-17] MEDS: AMOXICILLIN TRIHYDRATE 250 MG CAPSULE PO SCH ×2 (08:02→16:55)
[2020-07-17] MEDS: PANTOPRAZOLE 40 MG TABLET.DR PO SCH ×2 (08:02→16:55)
[2020-07-17] MEDS: CLARITHROMYCIN 500 MG TABLET PO SCH (08:02)
[2020-07-17 08:06] VITALS: BP 91/46
[2020-07-17] MEDS ORDERED: CLAR-45 PO (12:03)
[2020-07-17] MEDS ORDERED: PANT40TA2 PO ×2 (12:03)
[2020-07-17] MEDS ORDERED: AMOX500T2 PO (12:03)
[2020-07-17] MEDS: HYDROMORPHONE 1 MG/1 ML DISP.SYRIN IV PRN ×2 (12:37→17:18)
--- NOTE | 2020-07-17 13:14 | NUR ---
M/S RN NOTES PT REQUESTED TO TALK TO HOSPITALIST PRIOR TO DECIDING DISCHARGE. EDEN PETERSON PAGED
--- NOTE | 2020-07-17 14:34 | NUR ---
M/S RN NOTES PAGED EDEN PETERSON VIA [employer] LINE. WAITING FOR CALL BACK
[2020-07-17] MEDS: ACETAMINOPHEN 325 MG TABLET PO PRN (15:51)
[2020-07-17 16:01] VITALS: BP 120/64
--- NOTE | 2020-07-17 18:49 | NUR ---
M/S RN CLOSING NOTES PT A/OX4. NO PRESENCE OF ACUTE RESPIRATORY DISTRESS. LBM 07/15 FORM BROWN OUTPUT.DENIES PAIN AND DISCOMFORT AT THIS TIME, PAIN MEDICATION EFFECTIVE ORDERED. SKIN WARM TO TOUCH AN DRY, INTACT. DC TODAY WAITING FOR . IV SITE AT LEFT AC, PATENT IN FLUSHING. ALL CONCERNS ATTENDED. EXIT CARE PROVIDED. PT VERBALIZED UNDERSTANDING. ENDORSED CARE TO NEXT SHIFT.
[2020-07-17 19:15] LABS: HEMOGLOBIN 8.1 g/dL (13.5-17.5); MONOCYTES # (AUTO) 0.5 /CMM (0.1-1.30); NEUTROPHILS # (AUTO) 2.3 /CMM (1.8-8.9)
[2020-07-17 19:29] LABS: BASOPHILS # (AUTO) 0.1 /CMM (0.0-0.2); EOSINOPHILS % (AUTO) 4.8 % (0.0-6.0); HEMATOCRIT 25 % (39-51); LYMPHOCYTES % (AUTO) 39.4 % (20.0-44.0); MEAN CORPUSCULAR HGB CONC 33 g/dl (31.0-36.0); MEAN CORPUSCULAR VOLUME 88 fL (80-96); MONOCYTES % (AUTO) 10.3 % (2.0-12.0); NEUTROPHILS % (AUTO) 44.5 % (43.0-81.0); PLATELET COUNT (AUTO) 379 /CMM (150-450); RED BLOOD CELL COUNT(AUTO) 2.79 MIL/uL (4.5-6.0); WHITE BLOOD COUNT (AUTO) 5.1 K/uL (4.3-11.0)
--- NOTE | 2020-07-17 19:36 | NUR ---
RN OPENING NOTES PATIENT RECEIVED RESTING IN BED A/O X 4. STABLE ON RA WITH BREATHING EVEN AND UNLABORED, NO SOB NOTED. NO SIGNS OF ACUTE DISTRESS. NO COMPLAINTS OF PAIN OR DISCOMFORT AT THE MOMENT. IV LOCATED ON LAC #18 SL. SAFETY PRECAUTIONS IN PLACE WITH BED IN LOWEST POSITION, CALL LIGHT WITHIN REACH, BREAKS ON, SIDE RAILS UP. WILL CONTINUE TO MONITOR THROUGHOUT THE NIGHT.
[2020-07-17 20:00] VITALS: BP 128/82
[2020-07-17 20:03] LABS: CALCIUM, SERUM 7.7 mg/dL (8.5-10.1); CREATININE 1.1 mg/dL (0.6-1.3); POTASSIUM 3.2 mmol/L (3.5-5.1)
[2020-07-17 20:08] VITALS: BP 128/82
--- NOTE | 2020-07-17 20:14 | NUR ---
RN NOTES PATIENT REFUSING CALL A CAR TRANSPORTATION- DOES NOT WANT TO WAIT. PATIENT WILL CALL AN [facility] INSTEAD.
--- NOTE | 2020-07-17 20:19 | NUR ---
RN NOTES PATIENT DISCHARGED MEDICALLY STABLE. WALKED DOWN TO [facility] ACCOMPANIED BY RN FOR [facility] TRANSPORTATION. VITALS 128/ 61 HR 75 RR 18 T 98.1 O2SAT 100%. ID BAND REMOVED. IV REMOVED. PATIENT LEFT WITH ALL BELONGINGS. DISCHARGE PAPER WORKED SIGNED. EDUCATED PATIENT ON PACKET AND INSTRUCTIONS.
[2020-07-17 20:33] LABS: EOSINOPHILS % (MANUAL) 2 % (0-4); LYMPHOCYTES % (MANUAL) 44 % (16-48); NEUTROPHILS % (MANUAL) 54 (42-76)
== END 2020-07-17 20:15 | disposition home or self-care (01) | DRG 241 ==
LOC: ER 04:31 → TELE 06:22 → MED 07:36
PROVIDERS: ADMIT Nurse Practitioner Acute Care; ATTEND Nurse Practitioner Acute Care
PROC: 0DB68ZX Excision of Stomach, Via Natural or Artificial Opening Endoscopic, Diagnostic (ICD-10-PCS; principal; 2020-07-13)
PROC: 0DJD8ZZ Inspection of Lower Intestinal Tract, Via Natural or Artificial Opening Endoscopic (ICD-10-PCS; principal; 2020-07-13)
DX: K25.4 Chronic or unspecified gastric ulcer with hemorrhage (principal); N17.0 Acute kidney failure with tubular necrosis; B37.81 Candidal esophagitis; K26.4 Chronic or unspecified duodenal ulcer with hemorrhage; K64.8 Other hemorrhoids; E87.6 Hypokalemia; K21.9 Gastro-esophageal reflux disease without esophagitis; G89.29 Other chronic pain; D62 Acute posthemorrhagic anemia; B96.81 Helicobacter pylori [H. pylori] as the cause of diseases classified elsewhere; N20.0 Calculus of kidney; Z83.3 Family history of diabetes mellitus; Z87.828 Personal history of other (healed) physical injury and trauma; Z82.3 Family history of stroke; K29.71 Gastritis, unspecified, with bleeding; V89.2XXS Person injured in unspecified motor-vehicle accident, traffic, sequela
CPT/HCPCS: 36415; 71045-TC; 80048-TC; 80061-TC; 80076-TC; 81000-TC; 82140-TC; 82272-TC; 83605-TC; 83690-TC; 83735-TC; 84100-TC; 85025-TC; 85027-TC; 85730-TC; 86850-TC; 87081-TC; 87086-TC; 88302-TC; 88313-TC; 88342; A9560; C9113; C9803-CS; G0378; J1170; J2405; J2704; J2765; J3490; J7030